=== PATIENT | male | born 1985 | race Caucasian/White ===

== ENCOUNTER 2017-03-28 16:49 | Inpatient (IN) | payer MEDICAID, OTHER ==
--- NOTE | 2017-03-28 17:19 | ED ---
Psych HPI - General Source: patient, police, RN notes reviewed, old records reviewed Mode of arrival: EMS <Clementine Eaton - Last Filed: 03/29/17 04:10> <Kirk Sandoval - Last Filed: 03/29/17 17:17> - General Chief Complaint: Psychiatric Symptoms Stated Complaint: mental health Time Seen by Provider: 03/28/17 16:53 - History of Present Illness Initial Comments: This is a 31-year-old male presenting to the emergency department via police escort and EMS plate of delusional statements and being combative. Patient was petitioned by police. Patient reports that he came to pressure on after taking a ferry from [place] and his hometown, and crossing into [place]. Then he took the [employer] Bus system to [place]. He reports that he was trying to get his passport processed. Per police when the fire department and EMS was dispatched to a person down in a parking lot behind a bank. It initially patient was combative and making delusional statements. 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 Patient is Referencing the bible in each sentance. He states "Confucianism Marcell" and reports that this is his leader. Per the k 9 police officer, EMS dispatch advised that there is a [place] mental ordinance that exists, and that he cannot own guns. Patient reports that he has been hospitalized in the past but does not state exactly what for. He denies any significant medical history. He reports he takes no medication.Patient denies any recent fever, chills, shortness of breath, chest pain, back pain, abdominal pain, nausea vomiting, numbness or tingling, dysuria or hematuria, constipation or diarrhea, headaches or visual changes, or any other current symptoms (Clementine Eaton) - Related Data Home Medications Medication Instructions Recorded Confirmed No Known Home Medications [No 03/28/17 03/28/17 Known Home Medications] Allergies Allergy/AdvReac Type Severity Reaction Status Date / Time No Known Allergies Allergy Verified 03/28/17 16:59 Review of Systems ROS Other: All systems not noted in ROS Statement are negative. <Clementine Eaton - Last Filed: 03/29/17 04:10> ROS Other: All systems not noted in ROS Statement are negative. <Kirk Sandoval - Last Filed: 03/29/17 17:17> ROS Statement: Those systems with pertinent positive or pertinent negative responses have been documented in the HPI. Past Medical History Past Medical History: No Reported History History of Any Multi-Drug Resistant Organisms: None Reported Past Surgical History: Adenoidectomy, Tonsillectomy Past Psychological History: No Psychological Hx Reported Smoking Status: Former smoker Past Alcohol Use History: None Reported Past Drug Use History: None Reported <Clementine Eaton - Last Filed: 03/29/17 04:10> General Exam Limitations: no limitations General appearance: alert, in no apparent distress Head exam: Present: atraumatic, normocephalic, normal inspection Eye exam: Present: normal appearance, PERRL, EOMI. Absent: scleral icterus, conjunctival injection, periorbital swelling ENT exam: Present: normal exam, mucous membranes moist Neck exam: Present: normal inspection. Absent: tenderness, meningismus, lymphadenopathy Respiratory exam: Present: normal lung sounds bilaterally. Absent: respiratory distress, wheezes, rales, rhonchi, stridor Cardiovascular Exam: Present: regular rate, normal rhythm, normal heart sounds. Absent: systolic murmur, diastolic murmur, rubs, gallop, clicks GI/Abdominal exam: Present: soft, normal bowel sounds. Absent: distended, tenderness, guarding, rebound, rigid Extremities exam: Present: normal inspection, full ROM, normal capillary refill. Absent: tenderness, pedal edema, joint swelling, calf tenderness Back exam: Present: normal inspection Neurological exam: Present: alert, oriented X3, CN II-XII intact Psychiatric exam: Present: flat affect, other (Patient has loose associations, and is acting delusional. ). Absent: normal affect, normal mood Skin exam: Present: warm, dry, intact, normal color. Absent: rash <Clementine Eaton - Last Filed: 03/29/17 04:10> <Kirk Sandoval - Last Filed: 03/29/17 17:17> - General Exam Comments Initial Comments: 31-year-old male. No acute distress. Patient is with long hair and appears somewhat disheveled. (Clementine Eaton) Course <Clementine Eaton - Last Filed: 03/29/17 04:10> <Kirk Sandoval - Last Filed: 03/29/17 17:17> Vital Signs 03/28/17 03/29/17 03/29/17 16:53 03:20 10:43 Temperature 98.8 F 98.4 F Pulse Rate 90 66 Respiratory 16 16 18 Rate Blood Pressure 153/80 108/60 O2 Sat by Pulse 93 L 100 Oximetry 03/29/17 13:47 Temperature 98.8 F Pulse Rate 68 Respiratory Rate Blood Pressure 99/52 O2 Sat by Pulse 97 Oximetry - Reevaluation(s) Reevaluation #1: 03/28/17 17:21 Patient is medically cleared at this time and will be evaluated by emergency psych services. (Clementine Eaton) Reevaluation #2: 03/28/17 21:50 Patient is a irrate and upset. Patient will be given 2 IM Geodon and Ativan. At this time is in full word that patient will need to be transferred back to [place]. (Clementine Eaton) Reevaluation #3: 03/29/17 04:10 Patient is reevaluated and sleeping and resting comfortably. Patient To receive 2 mg of Ativan and 20 mg of Geodon IM. Afterwards patient was cooperative. Care will be transferred to Dr. Gloria at 4 AM. (Clementine Eaton) Medical Decision Making - Lab Data Result diagrams: 03/28/17 19:58 03/28/17 19:58 <Clementine Eaton - Last Filed: 03/29/17 04:10> - Lab Data Result diagrams: 03/28/17 19:58 03/28/17 19:58 <Kirk Sandoval - Last Filed: 03/29/17 17:17> - Medical Decision Making Patient was evaluated by EPS. They feel that he needs to be transferred back to [place]. Lab work needs to be obtained. CBC BMP and urinalysis ordered. ( Clementine Eaton) Patient was in a significant transferred to [place] however today it came to our attention that he is also is a [place] citizen. So we reevaluated him in the emergency department psych department decided to admit the patient. I did fill out a clinical certification (Kirk Sandoval) - Lab Data Lab Results 03/28/17 03/28/17 03/28/17 Range/Units 19:58 19:58 19:58 WBC 6.1 (3.8-10.6) k/uL RBC 4.87 (4.30-5.90) m/uL Hgb 16.0 (13.0-17.5) gm/dL Hct 45.0 (39.0-53.0) % MCV 92.4 (80.0-100.0) fL MCH 32.9 (25.0-35.0) pg MCHC 35.6 (31.0-37.0) g/dL RDW 12.3 (11.5-15.5) % Plt Count 214 (150-450) k/uL Neutrophils % 57 % Lymphocytes % 28 % Monocytes % 10 % Eosinophils % 1 % Basophils % 1 % Neutrophils # 3.5 (1.3-7.7) k/uL Lymphocytes # 1.7 (1.0-4.8) k/uL Monocytes # 0.6 (0-1.0) k/uL Eosinophils # 0.1 (0-0.7) k/uL Basophils # 0.0 (0-0.2) k/uL Sodium 143 (137-145) mmol/L Potassium 4.6 (3.5-5.1) mmol/L Chloride 101 (98-107) mmol/L Carbon Dioxide 29 (22-30) mmol/L Anion Gap 13 mmol/L BUN 10 (9-20) mg/dL Creatinine 0.70 (0.66-1.25) mg/dL Est GFR (MDRD) Af Amer >60 (>60 ml/min/1.73 sqM) Est GFR (MDRD) Non-Af >60 (>60 ml/min/1.73 sqM) Glucose 88 (74-99) mg/dL Calcium 9.7 (8.4-10.2) mg/dL Total Bilirubin 0.5 (0.2-1.3) mg/dL AST 35 (17-59) U/L ALT 62 (21-72) U/L Alkaline Phosphatase 51 (38-126) U/L Total Protein 7.3 (6.3-8.2) g/dL Albumin 4.7 (3.5-5.0) g/dL Urine Color Yellow Urine Appearance Clear (Clear) Urine pH 8.0 (5.0-8.0) Ur Specific [place] 1.016 (1.001-1.035) Urine Protein Trace H (Negative) Urine Glucose (UA) Negative (Negative) Urine Ketones Negative (Negative) Urine Blood Negative (Negative) Urine Nitrite Negative (Negative) Urine Bilirubin Negative (Negative) Urine Urobilinogen 2.0 (<2.0) mg/dL Ur Leukocyte Esterase Negative (Negative) Urine Opiates Screen Not Detected (NotDetected) Ur Oxycodone Screen Not Detected (NotDetected) Urine Methadone Screen Not Detected (NotDetected) Ur Propoxyphene Screen Not Detected (NotDetected) Ur Barbiturates Screen Not Detected (NotDetected) U Tricyclic Antidepress Not Detected (NotDetected) Ur Phencyclidine Scrn Not Detected (NotDetected) Ur Amphetamines Screen Not Detected (NotDetected) U Methamphetamines Scrn Not Detected (NotDetected) U Benzodiazepines Scrn Not Detected (NotDetected) Urine Cocaine Screen Not Detected (NotDetected) U Marijuana (THC) Screen Detected H (NotDetected) Disposition <Clementine Eaton - Last Filed: 03/29/17 04:10> Time of Disposition: 17:17 <Kirk Sandoval - Last Filed: 03/29/17 17:17> Clinical Impression: Acute psychosis Disposition: ADMITTED IP TO THIS [facility] Referrals: None,Stated [Primary Care Provider] - 1-2 days
[2017-03-28 20:15] LABS: Basophils % (A) 1 %; CH 32.6; CHCM 35.4; Eosinophils # (A) 0.1 k/uL (0-0.7); Eosinophils % (A) 1 %; HDW 2.56; Luc # (Auto) 0.22; Luc % (Auto) 4; Lymphocytes # (A) 1.7 k/uL (1.0-4.8); Lymphocytes % (A) 28 %; MCH 32.9 pg (25.0-35.0); MCHC 35.6 g/dL (31.0-37.0); MCV 92.4 fL (80.0-100.0); Mean Platelet Volume 7.2; Monocytes # (A) 0.6 k/uL (0-1.0); Monocytes % (A) 10 %; Neutrophils # (A) 3.5 k/uL (1.3-7.7); Neutrophils % (A) 57 %; RBC 4.87 m/uL (4.30-5.90); RDW 12.3 % (11.5-15.5); WBC 6.1 k/uL (3.8-10.6); WBC (Perox) 6.04
[2017-03-28 20:21] LABS: Appearance,Urine Clear (Clear); Bilirubin,Urine Negative (Negative); Glucose,Urine (UA) Negative (Negative); Ketones,Urine Negative (Negative); Leukocyte Esterase,Urine Negative (Negative); Nitrite,Urine Negative (Negative); Protein,Urine Trace (Negative); Specific Gravity,Urine 1.016 (1.001-1.035); UA Billing (MACRO vs. MICRO) CHEM
[2017-03-28 20:30] LABS: ALT 62 U/L (21-72); AST 35 U/L (17-59); Alkaline Phosphatase 51 U/L (38-126); Anion Gap 13 mmol/L; Blood Urea Nitrogen 10 mg/dL (9-20); Calcium 9.7 mg/dL (8.4-10.2); Carbon Dioxide 29 mmol/L (22-30); Chloride 101 mmol/L (98-107); Glucose 88 mg/dL (74-99); Non-African American GFR(MDRD) >60 (>60 ml/min/1.73 sqM); Potassium 4.6 mmol/L (3.5-5.1); Sodium 143 mmol/L (137-145); Total Bilirubin 0.5 mg/dL (0.2-1.3); Total Protein 7.3 g/dL (6.3-8.2)
[2017-03-28] MEDS ORDERED: LORazepam 2 MG/ML INJ IM STA (21:48)
[2017-03-28] MEDS ORDERED: ZIPRASIDONE 20 MG VIAL IM STA (21:48)
[2017-03-29] MEDS ORDERED: ACETAMINOPHEN TAB 325 MG TAB PO PRN (19:00)
[2017-03-29] MEDS ORDERED: MAG HYDROX/AL HYDROX/SIMETH 30 ML CUP PO PRN (19:00)
[2017-03-29] MEDS ORDERED: MAGNESIUM HYDROXIDE 2,400 MG/10 ML CUP PO PRN (19:00)
--- NOTE | 2017-03-29 19:57 | P.MDCNMH ---
History of Present Illness H&P Date: 03/29/17 Chief Complaint: Delusions 31 years old pleasant gentleman without significant past medical history, who was brought by police yesterday to the ED after being found in the street delusional and combative. The story I got from the patient today is slightly different from what was reported by the ED. He mentioned that he came from [place] to obtain his [place] PassPort, came by [facility], and have been in the [place] for 3 weeks. He was sleeping outside a bank overnight as he sits, and EMS and police found him, and he reported that they thought that he is not normal when he started talking that the people in this area will be having problems as they are not on the right path. He claimed that he knows and research lot about people were chosen by god, and he tries to show people the right path. He said he is Ann in taoism. Medically, he denied any other medical problems, review of systems was negative as below, he does not drink, but he admits to smoking marijuana occasionally. His vital signs and labs were unremarkable otherwise. He does not take any medications. Review of Systems Constitutional: Patient reports no fever, no chills, no weight changes, no change in appetite Eyes: Patient reports no double vision, no visual changes ENT: Patient reports no rhinorrhea, no post nasal drip, no sore throat Cardiovascular: Patient reports no chest, no edema, no palpitations, no syncope , no orthopnea, no paroxysmal nocturnal dyspnea. Respiratory: Patient reports no dyspnea, no cough, no wheeze Gastrointestinal: Patient reports no nausea, no vomiting, no constipation, no diarrhea Genitourinary: Patient reports no dysuria, no urinary frequency, no hematuria. Musculoskeletal: Patient reports no unusual joint pain, no joint swelling or weakness. Patient reports no muscular pain. Psychiatric: Patient reports no changes in mood, no sleeping problems. Patient reports no changes in memory. Endocrine: Patient reports no thirst, no polyuria, no cold intolerance, no heat intolerance. Neurological: Patient reports no unusual paresthesias, no seizures, no paresis , no paralysis, no facila droop, no headache. Heme/Lymphatic: Patient reports no easy bruising, no bleeding tendency, no lymphadenopathy. Allergic/ Immunologic: Patient reports no recent allergic reactions or immunologic history. Skin: Patient reports no rashes or unusual lesions. Past Medical History Past Medical History: No Reported History Additional Past Medical History / Comment(s): No past medical history. History of Any Multi-Drug Resistant Organisms: None Reported Past Surgical History: Adenoidectomy, Tonsillectomy Past Anesthesia/Blood Transfusion Reactions: No Reported Reaction Past Psychological History: No Psychological Hx Reported Smoking Status: Former smoker Past Alcohol Use History: None Reported Past Drug Use History: None Reported Medications and Allergies Home Medications Medication Instructions Recorded Confirmed Type No Known Home Medications [No 03/28/17 03/28/17 History Known Home Medications] Allergies Allergy/AdvReac Type Severity Reaction Status Date / Time No Known Allergies Allergy Verified 03/28/17 16:59 Physical Exam Vitals: Vital Signs Temp Pulse Pulse Resp BP BP Pulse Ox 03/29/17 17:48 97.0 F L 67 18 127/58 03/29/17 17:26 98.8 F 68 18 99/52 97 03/29/17 13:47 98.8 F 68 99/52 97 03/29/17 10:43 98.4 F 66 18 108/60 100 03/29/17 03:20 16 Intake and Output 03/29/17 03/29/17 03/29/17 06:59 14:59 22:59 Other: Weight 66.23 kg Patient Weight 03/30/17 06:59 Weight 66.23 kg Constitutional: No acute distress, conversant, pleasant Eyes: Anicteric sclerae, moist conjunctiva, no lid-lag PERRLA ENMT: NC/AT Oropharynx clear, no erythema, exudates Neck: Supple, FROM, no masses, or JVD No carotid bruits No thyromegaly Lungs: Clear to auscultation Clear to percussion Normal respiratory effort, no accessory muscle use Cardiovascular: Heart regular in rate and rhythm, No murmurs, gallops, or rubs No peripheral edema Abdominal: Soft Nontender, no guarding, rebound or rigidity Abdomen moving with respiration Normoactive bowel sounds No hepatomegaly, No splenomegaly No palpable mass No abdominal wall hernia noted Skin: Normal temperature, tone, texture, turgor No ulcers Extremities: No digital cyanosis No clubbing Pedal pulses intact and symmetrical Radial pulses intact and symmetrical Normal gait and station No calf tenderness Psychiatric: Alert and oriented to person, place and time Neuro: Muscles Strength 5/5 in all 4 extremities Sensation to light touch grossly present throughout Cranial nerves II-XII grossly intact No focal sensory deficits Cranial Nerve Examination - Cranial Nerves Cranial Nerve II- Optic: Intact Cranial Nerve III- Oculomotor: Intact Cranial Nerve IV- Trochlear: Intact Cranial Nerve V- Trigeminal: Intact Cranial Nerve - Abducens: Intact Cranial Nerve VII- Facial: Intact Cranial Nerve VIII- Auditory: Intact Cranial Nerve IX- Glossopharyngeal: Intact Cranial Nerve X- Vagus: Intact Cranial Nerve XI- Accessory: Intact Cranial Nerve XII- Hypoglossal: Intact Results CBC & Chem 7: 03/28/17 19:58 03/28/17 19:58 Labs: Abnormal Lab Results - Last 24 Hours (Table) 03/28/17 Range/Units 19:58 Urine Protein Trace H (Negative) U Marijuana (THC) Screen Detected H (NotDetected) Comments: No imaging studies Assessment and Plan (1) Acute psychosis Status: Acute Plan: 31 years old gentleman who is healthy otherwise, was brought by police for being delusional and combative. Patient is not combative and is pleasant upon my interview. He does not have medical problems other than his current acute psychosis. His blood pressure is slightly soft, he is small built and thin. Impression: -Acute psychosis He admits that he is teaching the lessons taken from the people were chosen by god Management per the psychiatric unit. No current opioids needs. -Marijuana abuse Marijuana was detected on UDS, however he admitted that the last smoke was 1 week ago We recommend social consult for chemical dependency and to offer resources for help -Soft blood pressure Likely related to poor nutrition We are recommend nutritional evaluation -Homeless status in the [place] Patient is from [place], but does have a [place] passport that was obtained recently as he reported We recommend case work aide consult Thank you for this consult, please do not hesitate to call us back for any questions. Time with Patient: Greater than 30
--- NOTE | 2017-03-30 10:29 | HP ---
PSYCHIATRIC ADMISSION NOTE: DATE OF : 1985 IDENTIFYING DATA: The patient is a 31-year-old male. He apparently is homeless. He was found by EMS and police on the street and brought to the emergency room for evaluation and then referred for psychiatric admission. The patient provided the bulk of information although what information he provided was very limited. CHIEF COMPLAINT: The patient had odd behavior. He was making delusional statements. He was talking in an odd, nonsensical manner with made up words. He made references to cannibals, Alvaro, terrorists and others. Patient was admitted on petition for involuntary hospitalization. HISTORY PRESENTING ILLNESS: The patient reports that he has not had a previous psychiatric hospitalization. He reports that he has not had prior mental health intervention nor has been on any psychotropic medications in the past or presently. He stated that about six weeks ago he moved from [place] He gave us his explanation for this, that he was living in [facility], he believe that "there was a terrorist uprising" with immigrants causing "rape and pillage." He believe that there was "demonology connected with the [place] " though he was not able to give a clear explanation of what he meant by that. He said that he spent one night in a assisted when he got [place] and since then he apparently has been living outdoors. He then went on to make statements about believing he heard people make statements that they ate children and that they raped children. When I asked for more details he said that people did not say that directly but that he had a "aura" that would come from some people with those statements. He believed that the police had told him that there were body parts of children in the [facility] and that there was cannibalism throughout the city of [place], directly mainly at children. Beyond these kind of statements he provided no other concrete information in regards to any psychiatric issues. He reported no issues with auditory or visual hallucinations or other delusions. He denied any posttraumatic symptoms or past history of trauma. He did not indicate any issues with anxiety or panic. There are references in the medical record for the patient becoming combative with police though there are no details reported. The patient himself denies having any significant psychiatric issues. He also states that the information he is providing is truth and actual and that he could not conceive that the information may not be in touch with reality. He is admitted for further evaluation. SUBSTANCE ABUSE HISTORY: Patient reports that he had been smoking marijuana daily up until he left [place]. He reports not use of marijuana since then. He reports not use of alcohol or other abusive substances past or present. PAST MEDICAL HISTORY: Patient reports no chronic or recurrent general health complaints. Further medical history and review of systems as per Dr. Lujan' s medical consultation. FAMILY AND SOCIAL HISTORY: The patient states that he dropped out of school in the 11th grade. He made some indication of some work that he had been doing though it is difficult to be clear what he was referencing. He did not provide other information in regards to past social history. MENTAL STATUS EXAM: Patient was dressed in a hospital gown. He gave good eye contact. He was restless. He answered questions with fairly elaborate responses. He would ramble and talk extensively about the ideas noted above. At times it was difficult to follow his train of thought or what things he might be referencing. He had an anxious and, at times, somewhat intense affect. His mood was dysphoric. He seemed somewhat distressed though he minimized any problems he was having. His thought content was significant for persistent delusional thinking. On cognitive exam he was oriented x3 and alert. He did not make an effort to answer formal cognitive questions. He appeared to have reasonable memory for recent and remote events. Insight was poor. Judgment uncertain. Fund of knowledge and intellectual level appeared average. PHYSICAL EXAM: As per medical consultation of Dr. Lujan. ASSESSMENT: This 31-year-old male is diagnosed with acute psychotic episode, rule out schizophrenia ( ) to his situation uncertain. He does not appear to have much if any social support. It is unclear over what period of time he has been having delusional thoughts or what the extent of the progression may be. Strengths include nondalton intelligence. Weakness includes poor insight regarding his current situation. DIAGNOSES: 1. Acute psychotic episode. 2. Rule out schizophrenia. 3. Marijuana abuse in early withdrawal. RECOMMENDATIONS: The patient will be admitted for comprehensive medical psychiatric and psychosocial evaluation. We will make efforts to engage the patient in individual and group therapeutic activities. I will complete a second certification in support of the petition for involuntary hospitalization. I had an extensive discussion with the patient in regards to the nature of the petition and hospitalization process. The patient seems to indicate that he would consider signing a deferral. At this point I would not recommend any medications to be initiated. I will give the patient an effort an get adjusted to the unit and to have some interactions with others, both in formal process such as our groups as well as informally. This will help to further the evaluation. I would look at possibly initiating antipsychotic medications. LAURIE
--- NOTE | 2017-03-30 15:18 | PN ---
DATE OF SERVICE: 03/30/2017 CHIEF COMPLAINT: The patient was admitted due to odd behavior. He was making delusional statements. He was talking in an odd nonsensical manner with made- up words. He made references to cannibals, Alvaro, terrorists and others. Patient was admitted on petition for involuntary hospitalization. INTERVAL HISTORY: Patient has been doing fair. He had a quite evening last night. He slept fair. Today, he has been up and about. He does come out in the day area. He has been attending groups though has seen to be reluctant to share much. He may come to the groups late and leave early. Generally his behavior has been appropriate. He tends to undulate himself. In regards to meals, he takes his meals in the [place]. He made the comment yesterday that there was someone in the dining room that was bothering him, though he did not say how. He continues to be quite delusional and focused on ideas about people doing harm. Some information had been transmitted to the Psychiatric nurse from police who were involved in bringing him to the hospital, that he may be under a court order treatment in [place]. Patient himself denies this. The patient reports that he has [place] citizenship; however, there is documentation we have regarding that. He says that he has a [place] certificate and that he is anticipating a passport to be delivered to his P.O. box that he has in [place] and we do not have any verifying information regarding that. Patient resists the idea of being on any medications. He has poor insight into the issues of a thought disorder that he manifests. He continues to talk about things happening eons ago as well as making references to terrorists, rapists and others. He has not displayed any difficult behaviors. At times, he can have quite the odd behavior with a very intense manner that is off-putting to others. He has been cooperative with basic issues on the unit. He has not had change in his general health. He tolerates his psychotropic medications. MENTAL STATUS: Patient sat with restlessness. He tended to ramble. He answered a few questions appropriately but most of the time he veered off into talk about the bible, terrorists and other bad things happening. He continued to make references to immigrants who are creating a terrorists uprising. His affect was intense. His mood reserved. He seemed moderately distressed. ASSESSMENT AND PLAN: Continue with the current diagnosis and plan. The patient is currently not on any psychotropic medications. I discussed the issues of his delusional thoughts and recommended that we start an antipsychotic medication. The patient declined that at this time. I did review issues relating to the petition. Patient has a deferral hearing tomorrow at 8: 15 a.m. We will make efforts to coordinate with [place] [employer] as far as the possibility of court order treatment in [place]. LAURIE
[2017-04-01] MEDS ORDERED: LORazepam 1 MG TAB PO STA (00:14)
--- NOTE | 2017-04-01 09:37 | PN ---
DATE OF SERVICE: 03/31/2017 CHIEF COMPLAINT: The patient was admitted due to odd behavior. He was making delusional statements. He was talking in an odd nonsensical manner with words, he made references to cannibals, Alvaro, terrorists and others. The patient was admitted on petition for involuntary hospitalization. INTERVAL HISTORY: The patient continues doing about the same. He had quiet evening last night. He slept fair. Today he has been up and about. He wanders about the unit. He will attend some groups. He is quite adamant about the idea of not taking medications. It is noteworthy that he only has presented with a [place] passport and other [place] identification including a medical card. The patient himself states that he was born in the [place] and anticipates receiving his [place] passport. We have no way of verifying this information. The patient had a deferral meeting this morning and has elected to have a cirilo hearing with a jury in regards to his petition. It is noted that we have made contact with the court and the court had indicated that the only appropriate disposition at this point is to have the patient transported back to [place] to be treated in his home [place]. We have no other information or documentation that would allow the patient to receive services in the [place]. I discussed this with the patient. Though he was quite adamant about the idea that he would seek alternative options to be referred back to a [place] medical facility. He has not had change in his general health. MENTAL STATUS: Initially the patient was quiet in his manner. He continued to be focused in his thoughts on the need to be out of [place] due to terrorist plots with many references to hostile activities and hostile intent of others including references going back over centuries. His affect was intense. After I presented the patient with the plan that we would coordinate for referral to a medical facility in [place], he became very angry. He made a number of derogatory comments with profanity. He was angry and distress. ASSESSMENT: I will continue the current diagnosis and treatment plan. We have made contact with a medical facility in [facility]. They currently are evaluation medical records as part of a assessment for admission. He will continue off medications at this time. The patient would be transported by EMS to [place] for further medical care. LAURIE
--- NOTE | 2017-04-01 19:48 | PN ---
DATE OF SERVICE: 04/01/2017 CHIEF COMPLAINT: The patient was admitted due to odd behavior. He was making delusional statements. He was talking in an odd nonsensical manner with made up words. He mad references to cannibals, Alvaro, terrorists and others. Patient was admitted on petition for involuntary hospitalization. INTERVAL HISTORY: The patient has been doing fair. He had a quiet evening last evening though in the night he got quite loud and intense. He was restless and became confrontational with staff. Today he has been up and about. He does not clearly socialize with others though he comes out in the day area. He tends to keep to himself. It is noteworthy that he takes his meals in the [place], stating in a vague way that there is something of a threat to him in the dining room so he chooses not to be around others. He attends some groups though not others. The following descriptors have been noted in group including, "bizarre, inappropriate, irritable, loud, intrusive, illogical , presybeterian preoccupation and restless." During one group it was noted that the patient sat facing the wall even while talking throughout the group. He made the comments about "why people shouldn't take medications." In another group it was documented as follows, "patient testing limits with film writer and peers. Patient demanding that select peers repeat information back to patient. Patient was loud and commanding." When I talked to the patient today he made no indication of concerns. He stated that he understood the current situation which namely was that the would go "to trial." I made an effort to explain to the patient that the next step in the process was that he has a hearing before Pasteurizing Machine Operator Elizabeth scheduled for the . While I made an effort to explain this to the patient, which I said directly, the patient began saying quite loudly, " I don't want to hear from you." He said that repeatedly during the time that I provided him the information about the court hearing. I also stated to the patient that my understanding was that he would not be transferred back to [place] and that it had been confirmed that he has [place] citizenship based on his place of noted in his [place] passport. Again, throughout all of that discussion the patient was very loud and kept repeating that he did not want to talk or hear from me. He has not had any complaints regarding general health. At times he gets intense though he has not had any clear disruptive or difficult behavior beyond being loud and restless. MENTAL STATUS: Patient gave poor eye contact. He was restless. He did not make any effort to answer questions. He had an angry affect as noted above. His mood was dysphoric. He was significantly distressed. ASSESSMENT: I will continue the current diagnosis of acute psychotic episode. It is likely that he has an underlying diagnosis of schizophrenia though we do not have longitudinal information to be able to confirm that diagnosis. I had discussed with staff that there needs to be caution in monitoring and assessing his behavior and function. He has paranoid delusions and indicates that on the unit he feels threatened in some way. While he has not demonstrated any behavior that would be a potential risk for harm and safety, either to the patient himself or others, we have to be prepared that there may be unpredictable behaviors that could be potentially dangerous given the paranoia and sense of threat that the patient has. We will continue with the process for petition. LAURIE
--- NOTE | 2017-04-02 15:55 | PN ---
DATE OF SERVICE: 04/02/2017 CHIEF COMPLAINT: The patient was admitted due to odd behavior. He was making delusional statements. He was talking in an odd, nonsensical manner with made- up words. He made references to cannibals, Alvaro, terrorists and others. The patient was admitted on petition for involuntary hospitalization. INTERVAL HISTORY: The patient has been doing fair. He continues to decline all treatment intervention. He declines taking any medications. He continues to make statements that he does not identify any mental health issues he has; on the other hand, he continues to make delusional statements. He made a comment about computer chips being implanted in him. He continues to focus on feeling that others around him are out to do him harm. Yesterday he made some inappropriate and threatening comments towards another patient in reference to sexual orientation. He continues to make references to bad things happening in the hospital, in the community, in the country and beyond. He is not able to show any insight in regards to his thought content. Patient has had episodes where he gets angry and yells at staff. Some staff feel that he seems to direct more anger at female staff. He will yell in an angry tone, being dismissive of staff. Sometimes he will resist following redirection, such as when he was at the nursing desk and was asked to move to other areas of the unit, he became quite belligerent about that. He has not had change in his general health. He does not identify any immediate needs or concerns that we could address, though I made an effort to make it clear that both staff and I are available if he identified needs to address. MENTAL STATUS: Patient was in the day area. He gave fair eye contact at best. Psychomotor activity was slowed. Speech was monotone. He was not spontaneous or interactive. He responded to a few questions with vague answers. His affect was angry, his mood dysphoric. He seemed somewhat distressed. ASSESSMENT: I will continue the current diagnosis and treatment plan. I had an extensive discussion with staff in regard to monitoring for behavioral issues. He has made some suggestion of feeling threatened by others on the unit. He has had periods where he gets loud and angry. Staff need to have concern that his behavior is unpredictable and that we may need to have early intervention, should his behavior deteriorate. We continue with the petition process. LAURIE
[2017-04-03] MEDS ORDERED: WATER FOR INJECTION, STERILE 10 ML IV ONE (12:15)
[2017-04-03] MEDS ORDERED: ZIPRASIDONE 20 MG VIAL IM ONE (12:15)
--- NOTE | 2017-04-03 14:17 | P.PN ---
Progress Note - Text Interval history: Patient seen in cross coverage today for Dr. Thibodeaux. He seems to relay that he is sleeping and eating well. He relates that he is not taking any medication and is not interested in any medication at this time. He seems to relay that he is doing better than most people here who are dealing with mental health issues. Mental status exam: He is alert and cooperative with the interview. He asks me several times during the session a no what a certain word means. He refers to himself as a "nigger" and an "Israelite." he does not verbalize any hallucinations or thoughts of harm to self or others. He does not show any significant agitation. Plan: We'll continue to monitor patient status. He has upcoming court hearing on the . We'll continue to cover for Dr. Thibodeaux through the weekend.
--- NOTE | 2017-04-04 18:19 | P.PN ---
Progress Note - Text Interval history: Patient is seen in cross coverage today for Dr. Thibodeaux. He reports that he slept well last night and is eating well. He reports that he had for lunch. He makes reference to feeling optimistic. Mental status exam: He is alert and cooperative with the interview. His speech is fluent, not rapid or pressured. His thought processes do show some disorganization at times and towards the end of the session he is very focused on methodist matters. He denies any thoughts of harm to self or others. He describes his mood as "optimistic." He does not show any significant agitation. Plan: Patient does talk about upcoming court hearing. Dr. Thibodeaux will be resuming his care tomorrow. Continue to monitor his status
--- NOTE | 2017-04-05 08:18 | P.PN ---
Subjective Principal diagnosis: Rash Patient 31-year-old male with no significant past medical history who is admitted to the psychiatric unit for delusional thinking. We are asked evaluate him today for possible rash on his back. The nurse noted that this morning. He states that the rash does not hurt but it does feel itchy. He is concerned that he could've been exposed to an insect. He is unsure if he has had a bug bite are not in that area. He believes it may be due to an ALLERGIC reaction to his down or bedding. He denies any chest pain, shortness of breath, nausea, vomiting, or constipation. Objective - Vital Signs Vital signs: Vital Signs Temp 97.7 F 04/03/17 07:44 Pulse 52 L 04/03/17 07:44 Resp 16 04/03/17 07:44 BP 96/63 04/03/17 07:44 Pulse Ox 97 03/29/17 17:26 - Exam General: non toxic, no distress, appears at stated age, disheveled Derm: Approximately 2 cm area of redness and warmth to the right of his spine, it is slightly raised but I do not feel fluctuant area that could be drained, no lesions Head: atraumatic, normocephalic, symmetric Eyes: EOMI, no lid lag, anicteric sclera Mouth: no lip lesion Cardiovascular: S1S2 reg, no murmur, positive posterior tibial pulse bilateral, Lungs: CTA bilateral, no rhonchi, no rales , no accessory muscle use Ext: no gross muscle atrophy, no edema, no contractures Neuro: CN II-XI grossly intact, no focal neuro deficits Psych: Alert, oriented, anxious - Labs CBC & Chem 7: 03/28/17 19:58 03/28/17 19:58 Assessment and Plan (1) Cellulitis Narrative/Plan: Trunk, will start Bactrim DS 1 tablet twice daily, will recheck in the next 2-3 days to ensure that abscess is not forming. Have ordered 5 days of treatment with small area of cellulitis and no risk factors. Status: Acute Plan: Thank you for allowing us to participate in the care of this patient. We will follow peripherally. Do not hesitate to contact us with questions. Someone can be reached from the [facility] hospitalist group at all hours of the day at [phone]. We will plan on seeing the patient again in 2-3 days to check quality of rash. If he is discharged prior to the please call us for Bactrim prescription to complete his course of therapy
[2017-04-05] MEDS ORDERED: HALOPERIDOL LACTATE 5 MG/ML 1 ML VIAL IM PRN ×2 (10:03)
[2017-04-05] MEDS ORDERED: LORazepam 2 MG/ML INJ IM PRN (10:04)
[2017-04-05] MEDS: SULFAMETHOX-TMP 800-160MG 1 EACH TAB PO SCH ×2 (10:22→22:28)
[2017-04-06] MEDS: SULFAMETHOX-TMP 800-160MG 1 EACH TAB PO SCH ×2 (10:29→21:47)
--- NOTE | 2017-04-06 13:04 | PN ---
DATE OF SERVICE: 04/05/2017 CHIEF COMPLAINT: The patient was admitted due to odd behavior. He was making delusional statements. He was talking in an odd nonsensical manner with made up words. He made references to cannibals, Alvaro, terrorists and others. The patient was admitted on petition for involuntary hospitalization. INTERVAL HISTORY: The patient had a quiet weekend according to the notes of Dr. Waite. He reports sleeping fairly well last night. Today he has been up and about. Additionally when I saw him earlier in the day, he was somewhat distressed about the fact that the nurse had asked not to intervene in a way where he intruded on another patient. Another patient was being loud and seemed distressed. The patient said that he felt the other human being was in distress and I needed to help him. He was directed under such circumstances to now intrude in the care of other patients but in that situation to come immediately to staff at the nursing desk and report and then to move to another area of the unit. It is also noted that at times he may stand and stare into the offices where nursing and other staff are. He was directed to not have that behavior though he was certainly free to move about the unit. It was clarified that kind of behavior can be intrusive as well as interpreted as threatening. I met with the patient later on in the day. He asked some questions about his court hearing for tomorrow. We discussed some of the issues with this. He asked what my assessment was. I did share that had diagnosed him with paranoia and delusions. I reviewed things that the patient had said to come to that conclusion. I noted that the patient had struggles with his mood and that we have seen him a number of times on the unit getting very angry. He says the only time he gets angry is when people interrupt him when he is trying to talk. He said that those situations occur when he is trying to tell people about his confucianist and explain his background. I discussed with the patient that the work that we would do on the psychiatric unit is not involved in his confucianism or philosophical beliefs but strictly focused on psychiatric issues. It is noted that after the discussion went on, he made a number of references to things such as people being micro chipped. He stated that when he goes to court, he wants a jury trial with people that are not microchipped. He then went on to say that he is well aware that people in [place] have been microchipped going back to the 1950s. I discussed with the patient that when he makes comments like that, that it would add to information suggestive of delusions and paranoia. I discussed his behavior of not going into the dining room and eating with others. He started talking about his confucianism believes and how he was supposed to eat with my own people. I discussed that there are plenty of tables in the dining room and if he prefers, he can sit by himself. However, isolated himself in those circumstances again is another piece of information that is suggestive of thought disorder. I reviewed the behaviors that he has had as well including the two noted above. I also reviewed the statements that he had made earlier in his admission about terrorist, rape, people eating children and body parts found in the [place] as further suggestion of thought disorder. The patient denied any problems with general health. He continues off psychotropic medications. I did offer him some Zyprexa. I reviewed some of the basic issues related to Zyprexa as well as indications and side effects. At one point, it seemed as if the patient was contemplating a willingness to start the medication. I discussed one of his motivations is to get out of the hospital fairly soon and that starting medication and considering signing a deferral would be appropriate options to help in this regard. As the discussion went on, he then changed to making references that were not in touch with reality. He clearly indicated that he did not want to take medication. I also reviewed the process of a 90 day treatment order should that be put into effect. MENTAL STATUS: The patient had a staring gaze. He had a stiff posture. He answered some questions with brief responses. He tended to give tangential answers and make many references to the Bible and other beliefs that he had. He had anxious affect. His mood was reserved. He seemed somewhat distressed. ASSESSMENT: I will continue the current diagnosis and treatment plan. The patient has an initial court hearing tomorrow and we will get further information in regards to issues relating to the petition and possible court order treatment should that come to pass. LAURIE
[2017-04-07] MEDS: SULFAMETHOX-TMP 800-160MG 1 EACH TAB PO SCH (10:01)
--- NOTE | 2017-04-07 12:03 | PN ---
DATE OF SERVICE: 04/06/2017 CHIEF COMPLAINT: The patient was admitted due to odd behavior. He was making delusional statements. He was talking in an odd, nonsensical manner with made up words. He had aggressive behavior. He made references to cannibals, Alvaro, terrorists and others. He was admitted on petition for involuntary hospitalization. INTERVAL HISTORY: The patient has continued the same. He continues to present with quite a paranoid manner. He is only minimally cooperative with staff. He had an incident in the social work office where he got quite angry and loud. He would not respond to redirection. He got quite angry and started talking in a very loud voice about being a criminal and also that there were criminals around him. In addition, he made statements that he needed to go to [facility] to feel safe. At one point yesterday he was pounding on the desk and demanding things although it is difficult to be clear what he was referring to. He had previously told a staff member that he had four warrants in [place] though since then he denies any issue with that. It is also noted that the [facility] Transportation Agent who originally had brought him to the emergency room had called officials in [place] and had found out that he did have a court ordered treatment process in [place]. Again, he tends to give different stories to different people though he told the social service assistant on admission that the way [place] got [place] in the back of a truck though he told me that he presented his passport to officials. He continues to be adamant about the idea that he will not take medications. MENTAL STATUS: The patient had an angry manner. He essentially declined to talk or make any indications about any concerns he might have. His affect was intense and angry. His mood dysphoric. He was significantly distressed. He had paranoid ideation. ASSESSMENT: I will continue the current diagnosis and treatment plan. The patient continues all psychotropic medications. He is requesting a jury hearing in regards to his petition so his court date has been adjusted to accommodate that. I have discussed with staff that if he shows provocative behavior that we need to be prepared to utilize p.r.n. medications. An issue that we may be dealing with is the fact that his paranoid thinking may be somewhat contained while he is on the psychiatric unit which also may help him hold back a potential acting out behavior. On the other hand, he has consistently shown some degree of threatening behaviors and clear paranoia, particularly towards any authorities including mental health staff . It is well understood that being in a contained situation such as the locked psychiatric unit, that may help contain potential acting out behavior. He would be at significant risk if he were out in the community. In fact, he has expressed a lot of fears when he was in the community, making the statement that he believe people around him were threatening and then people in the community were threatening and then people in the state were threatening and then people in the entire country were threatening. He has shown a few brief periods where he can be rational, appropriate and willing to consider reasonably treatment options though it is very clear he will pull back from that and then get into more clear paranoid thinking. We need to be vigilant in terms of safety issues for the patient and others. LAURIE
--- NOTE | 2017-04-07 16:41 | P.PN ---
Subjective Principal diagnosis: Rash Patient 31-year-old male with no significant past medical history who is admitted to the psychiatric unit for delusional thinking. We are asked evaluate him today for possible rash on his back. Patient states the rash is resolved. He denies itching and pain. He has no other lipids at this time. Denies nausea and vomiting. Objective - Vital Signs Vital signs: Vital Signs Temp 97.8 F 04/07/17 00:15 Pulse 62 04/07/17 00:15 Resp 18 04/07/17 00:15 BP 134/75 04/07/17 00:15 Pulse Ox 97 03/29/17 17:26 - Exam General: non toxic, no distress, appears at stated age, disheveled Derm: Area of redness resolved, no lesions Head: atraumatic, normocephalic, symmetric Eyes: EOMI, no lid lag, anicteric sclera Mouth: no lip lesion Cardiovascular: S1S2 reg, no murmur, positive posterior tibial pulse bilateral, Lungs: CTA bilateral, no rhonchi, no rales , no accessory muscle use Ext: no gross muscle atrophy, no edema, no contractures Neuro: CN II-XI grossly intact, no focal neuro deficits Psych: Alert, oriented, anxious - Labs CBC & Chem 7: 03/28/17 19:58 03/28/17 19:58 Assessment and Plan (1) Cellulitis Narrative/Plan: resolved, stop bactrim, suspect that this may be related to bug bite. Status: Acute Plan: Thank you for allowing us to participate in the care of this patient. We will follow peripherally. Do not hesitate to contact us with questions. Someone can be reached from the [facility] hospitalist group at all hours of the day at [phone].
[2017-04-07] MEDS: HALOPERIDOL LACTATE 5 MG/ML 1 ML VIAL IM PRN (20:30)
[2017-04-07] MEDS: LORazepam 2 MG/ML INJ IM PRN (20:31)
--- NOTE | 2017-04-08 11:52 | PN ---
DATE OF SERVICE: 04/07/2017 CHIEF COMPLAINT: The patient was admitted due to odd behavior. He was making delusional statements. He was talking in an odd nonsensical manner with made up words. He had aggressive behavior. He made references to cannibals, Alvaro, terrorists and others. He was admitted on petition for involuntary hospitalization. INTERVAL HISTORY: The patient continues to function as he has. He has episodes where he gets angry and intense. At other times, he will be more withdrawn. He had some incidents yesterday and last night where he got agitated in different places. One was in the office of the director of social media marketing where he got quite loud. He was yelling. He was refusing to respond in any way to calm himself. He needed to be escorted out of the office. He had some episodes last night of agitation where he got very loud and disrespectful to others. He sleeps fair. Today he has continued the same. He continues to decline taking any medications. I had had an extensive discussion with the patient describing the court order process and the potential for 90 day treatment program. From the patients perspective , he continues to anticipate a 90 day treatment being something where he would be monitored, followed and have much of his life restricted. This is in spite of the fact that I have explained the basis of the treatment process as a safety net. Most every day that I have done rounds with him, I explained that treatment process where he is the principal person of the treatment team to help determine what will be the best options. Continue to indicate to the patient that I have assessed him as having paranoid delusions and have explained criteria for this. Today it was noteworthy that the patient seemed to show a little more interest in the possibility of treatment. It is not clear whether he gained any insight about the potential benefit of medications or rather that some willingness to cooperative with treatment would support his discharge from the unit much sooner than the current course that he has taken. MENTAL STATUS: The patient in the day area gave fair eye contact. He had a very stiff posture. He had a staring gaze. He seemed a little more introspective today. He had almost a thoughtful manner. His affect was constricted though it seemed as though he was quite tense and anxious as well. His mood was dysphoric. It was difficult to say how distress he might be feeling. ASSESSMENT: I will continue the current diagnosis and treatment plan. I will continue to make efforts to encourage the patient towards working with the treatment team as well as with the courts to initiate appropriate treatment which includes medications as a step towards discharge. I discussed with the patient that if we were to start an antipsychotic medication in the next few days, we could anticipate reasonable chance that he could be discharged by mid week next week. He does understand that otherwise pursuing the court process will at least be in the hospital since his May 07 hearing. We will continue to focus on stabilization and education. LAURIE
[2017-04-08] MEDS: HALOPERIDOL LACTATE 5 MG/ML 1 ML VIAL IM PRN (18:39)
[2017-04-08] MEDS: LORazepam 2 MG/ML INJ IM PRN (18:40)
[2017-04-09] MEDS ORDERED: diphenhydrAMINE 50 MG/ML 1 ML VIAL IM PRN (12:11)
--- NOTE | 2017-04-09 13:15 | PN ---
DATE OF SERVICE: 04/08/2017 CHIEF COMPLAINT: The patient was admitted due to odd behavior. He was making delusional statements, he was taking in an odd nonsensical manner with made up words. He had aggressive behavior. He made references to cannibals, Alvaro, terrorists and others. He was admitted on petition for involuntary hospitalization. INTERVAL HISTORY: The patient has been having significant problems. It is noted that he has had a range of difficult interactions with staff. He has had some problems where he got loud and quite intense in the social work office. He has had some behavior on the unit where he had inappropriate interactions and intrusive interactions with staff and other patients. He has declined to take any medications. It is noted that yesterday evening he had a very difficult time. He got into serious agitation and was very threatening towards staff. I refer the reader to the nursing notes below. Around 8:50 in the evening he received an injection of Haldol and Ativan for his disruptive and threatening behavior. After that he seemed to quite down. He slept fairly well last night. The day he stayed in his room. He has made efforts to bring excessive amounts of food in his room as opposed to coming out to the dining area to eat. Other than that he has just remained in his room in his bed. Staff did note last evening after the situation where he received other medications that he was in his room pulling down currents. Staff removed the curtains from his room for his safety. It was not clear what the intention was. The patient did not say anything about this and there was concern that there might be potential for his acting in some way to harm himself or harm others. When I saw the patient he had little to say about last evening events. He said he simple was in the television room and he was cheering on some things he was seeing on TV that he was enjoying. He was unaware that he had any kind of inappropriate behavior. Beyond that he then declined to speak anymore. I asked if he had any questions or concerns or had any other issues that he wished to address. He again said, No. MENTAL STATUS EXAM: The patient was in his room lying down. He did not give any eye contact. He said a few things and then declined to make any further comments. He did not ask any questions. He had a somewhat quite though angry manner in his voice. He seemed to be somewhat distressed. ASSESSMENT: I will continue the current diagnosis and treatment plan. At this point the patient will remain off psychotropic medications. I have discussed with staff the need to have close monitoring for any risk for aggressive behavior. The concern is that the patient has had what appeared to be heightened paranoia with foul and intense language with references to things such as God brining wrath on people and other somewhat vague statements. There is concern for his functioning. We may need to look at additional medication use if it appears there is escalation in risky behavior. I will get regular updates from staff as appropriate. 04/07/17 20:42 - Nurse Note by Shane Kennedy Acct Num: [id number] : 1985 Patient Age: 31 Patient observed being disruptive and yelling out loud in the [facility]. Patient was instructed to not yell out loud. Featheredge Machine Operator set limits and requested that patient not yell out loud as he was being very disruptive on the unit. Patient then stated "Why are you violating my rights? It's because I am an [employer]." Patient also stated, "You will bow down to me." Patient continued to raise voice and was presenting very agitated and was not responding to verbal redirection and limit setting. Patient continued to state delusions and psychotic statements of being tape recorded. Patient said "Shut the door and get out." Pt. continued to yell out loud and was not responding to staff's direction to lower his voice due to peers being reportedly fearful to enter the [facility]. Patient received IM haldol and ativan due to his psychosis and agitation, security was notified to assist. After receiving IM medications, senior grant writer was completing rounds when patient stated "Get the fuck outta here you bitch!" Patient continues to present manic and disorganized. Initialized on 04/07/17 20:42 - END OF NOTE 04/07/17 20:45 - Nurse Note by Melanie Butts Acct Num: [id number] : 1985 Patient Age: 31 pt has been in [facility] yelling out and being disruptive in the [facility]. peers are fearful to go into [facility] [place], [place] d/t pt stating bizzare statements and intimidating them until they leave. pt then will close the lounge door and continue yelling out. pt asked multiple times to quiet his voice to indoor levels and pt only would state," I am encouraging my people to stand for what they believe in, do you have a problem with that ." pt then started to talk in [facility] and was trying to intimidate senior grant writer. senior grant writer told pt that the lounge belongs to the pts on the unit, all pts. pt would not comply with staff and again was yelling out and again a male peer was in the lounge and stated," I am just going to get out of here right now." this pt then again, was asked to maintain a voice level that is non threatening to peers. pt again became belligerent and confrontational. pt making statements of how many problems we will have with him if we just don't leave him alone. PRN IM's given per dr roth's order. security aided in the med assist Initialized on 04/07/17 20:45 - END OF NOTE MTDD
[2017-04-09] MEDS: BENZTROPINE MESYLATE 1 MG TAB PO SCH ×2 (14:00→21:41)
[2017-04-09] MEDS: HALOPERIDOL 5 MG TAB PO SCH ×2 (14:00→21:41)
[2017-04-09] MEDS ORDERED: MELATONIN 5 MG TABLET PO PRN (23:13)
--- NOTE | 2017-04-10 08:26 | PN ---
DATE OF SERVICE: 04/09/2017 CHIEF COMPLAINT: The patient was admitted due to odd behavior. He was making delusional statements. He was talking in an odd nonsensical manner with made up words. He had aggressive behavior. He made references to cannibals, Alvaro, terrorists and others. He was admitted on petition for involuntary hospitalization. INTERVAL HISTORY: The patient has been doing fair. He had a difficult evening yesterday with disruptive and threatening behavior at approximately 6:45 in the evening. He became agitated. He was swearing and using much profane language. He was intruding on situations of other patients which is something that had been discussed previously as an issue that he needed to avoid. He became agitated. He made references to wrath of God, Apaches and other vague utterances. (see Nursing note below) He received Haldol 5 mg IM with Ativan 1 mg IM. He slept fairly well last night. He tends to isolate himself in his room. Today, he continues to be fairly isolated. When we talked, I reviewed issues in regards to his petition. We discussed a plan for him to get started on medications with the aim of getting discharged. He was in agreement with that. He stated he was willing to talk to the employment law attorney to sign a deferral. He did make some odd and delusional statements when we talked about the documentation though he seemed to be appropriate when we talked about his medications. He has not had change in his general health. He tolerates psychotropic medications. MENTAL STATUS: The patient initially was distressed and somewhat angry. He tended to ramble though could be redirected. His affect was intense. As the interview went on he became a little calmer. His mood was dysphoric. He was somewhat distressed. ASSESSMENT: I will continue the current diagnosis and treatment plan. The patient is willing to sign a deferral. I will start him on Haldol 5 mg twice a day with Cogentin 1 mg twice a day. I discussed that I would anticipate it would take 7 to 10 days for him to get stabilized on the medication. I discussed that within that time frame, we would like to switch him to a longacting injectable Haldol and that I would anticipate discharging him. He did ask about possible living circumstances and would be willing to go to a detention upon discharge. We will continue to focus on stabilization and discharge planning. 04/08/17 18:48 - Nurse Note by Melanie Butts [facility] Num: [id number] : 1985 Patient Age: 31 pt sitting in back hallway and when policy writer walked by pt with a new admit pt stated," Prateek cooper." " Don't fuckin listen to a word she says, she lies, man don't listen to her." When policy writer turned to pt, pt stated," What are you looking at?" policy writer told pt that is vulgar language will not be accepted and that he needs to maintain is behavior. pt stated," Your the one bothering me right now, be gone." when U tech walked by pt, pt stated," Don't fucking stare at me." security called and IM's per Doctor order given. pt fought and tried to punch security. pt did not connect. security and staff tried to talk with pt regarding his behavior and pt just stated to security dill," The wrath of God will come upon you, you turned against us, the apaches, you will pay for that." pt then went and sat down at the back table calling policy writer duglas tran, yossi tran, you are dismissed." Initialized on 04/08/17 18:48 - END OF NOTE LAURIE
[2017-04-10] MEDS: BENZTROPINE MESYLATE 1 MG TAB PO SCH ×2 (09:33→21:33)
[2017-04-10] MEDS: HALOPERIDOL 5 MG TAB PO SCH ×2 (09:33→21:33)
--- NOTE | 2017-04-10 16:30 | P.PN ---
Progress Note - Text Date of service: 04/10/2017 Chief complaint: "I want to talk to you" Subjective: The patient has been seen today as follow-up, chart reviewed, case discussed with the treatment team. Patient slept about 4 hours last night. Patient has been not going to groups and other unit activities. Patient reports fair appetite problems. Patient continued to present very paranoid, and disorganized. He was noticed dancing and acting bizarre in front of TV. Nurses reports the patient continued to be delusional and reports hearing voices. The patient came today only to discuss his court trial and deferral. He stated doesn 't want to take any medications because "it will mess up with my mind and make me nauseated" Patient was able to understand that he has to take his medications in order for the deferral to be effective and useful. He requested to be on other psychiatric medications besides Haldol. He agreed to take Seroquel but only "low dose". I will start patient on 100mg BID. Review of other systems: Patient denies any physical symptoms besides what has been mentioned above. No breathing problems, no chest pain reported today. Objective: Vitals has been reviewed. Mental status examination; Appearance: The patient appears bizarre with long pittman and long hair. Dressed in hospital gown Gait/posture: Normal arm swinging: No abnormal movements. Attitude and behavior: not engaged, not cooperative, poor eye contact. Motor activity: increased psychomotor activity Speech:pressured Mood: anxious Affect:constricted Thought form: Preoccupied with discharge. [place]. Fixated on court and deferral Thought content: Paranoid. Looks internally preoccupied but denies suicidal thoughts, denies homicidal thoughts, denies intentions or plans. Perception: Denies any auditory or visual hallucinations but nurses report is different Attention: No impairment. Insight: Patient has poor insight about his psychiatric disorder. Judgment: Patient has poor judgment about his psychiatric treatment. Assessment: Schizophrenia Plan: Continue with inpatient psychiatric hospitalization for monitoring and continue treatment. Continue group therapy and other unit activities. Continue psychiatric medications: Will start Seroquel 100mg PO BID and keep Haldol and cogentin orders. Patient continued to refuse Haldol and cogentin Continue follow up
[2017-04-10] MEDS: QUEtiapine 100 MG TAB PO SCH ×2 (16:52→21:32)
[2017-04-11] MEDS: BENZTROPINE MESYLATE 1 MG TAB PO SCH ×2 (10:04→21:16)
[2017-04-11] MEDS: QUEtiapine 100 MG TAB PO SCH ×3 (10:04→21:13)
[2017-04-11] MEDS: HALOPERIDOL 5 MG TAB PO SCH ×2 (10:04→21:16)
--- NOTE | 2017-04-11 11:47 | P.PN ---
Progress Note - Text Date of service:04/11/2017 Chief complaint: "I feel great" Subjective: The patient has been seen today as follow-up, chart reviewed, case discussed with the treatment team. Patient slept about 4 hours last night according to nursing report but patient stated he slept for more than 6 hours. Patient reports that has been going sometimes to groups but he prefer to stay away from other patients.Patient reports good appetite problems. Patient still presented very evasive and superficial in his answers. He looks paranoid and RIS. He denies any auditory hallucinations and denies delusions. He also denies feeling paranoid, depressed or any mood swings. He denies feeling suicidal and denies homicidal thoughts. The patient is compliant with his medications and denies any adverse reactions. Nursing report patient refused to take Seroquel in front of them and concerned about pt cheating his medication. Discussed with pt to take medication in front of nurses, and he agreed. Review of other systems: Patient denies any physical symptoms besides what has been mentioned above. No breathing problems, no chest pain reported today. Objective: Vitals has been reviewed. Mental status examination; Appearance: The patient appears bizarre with long pittman and long hair. Dressed in hospital gown Gait/posture: Normal arm swinging: No abnormal movements. Attitude and behavior: not engaged, not cooperative, poor eye contact. Motor activity: increased psychomotor activity Speech:slow, not spontaneous, prompted Mood: anxious Affect:constricted Thought form: Preoccupied with discharge. [place]. Fixated on court and deferral Thought content: Paranoid. Looks internally preoccupied but denies suicidal thoughts, denies homicidal thoughts, denies intentions or plans. Perception: Denies any auditory or visual hallucinations but nurses report is different Attention: No impairment. Insight: Patient has poor insight about his psychiatric disorder. Judgment: Patient has poor judgment about his psychiatric treatment. Assessment: Schizophrenia Plan: Continue with inpatient psychiatric hospitalization for monitoring and continue treatment. Continue group therapy and other unit activities. Continue psychiatric medications: Will continue Seroquel 100mg PO BID and keep Haldol and cogentin orders. Patient continued to refuse Haldol and cogentin Continue follow up
[2017-04-12] MEDS: QUEtiapine 100 MG TAB PO SCH (09:12)
[2017-04-12] MEDS: HALOPERIDOL 5 MG TAB PO SCH ×2 (09:12→21:56)
[2017-04-12] MEDS: BENZTROPINE MESYLATE 1 MG TAB PO SCH ×2 (09:13→21:56)
--- NOTE | 2017-04-12 19:01 | PN ---
DATE OF SERVICE: 04/12/2017 CHIEF COMPLAINT: The patient was admitted due to odd behavior. He was making delusional statements. He was talking in an odd nonsensical manner with made up words. He had aggressive behavior. He made references to cannibals, Alvaro, terrorists and others. He was admitted on petition for involuntary hospitalization. INTERVAL HISTORY: The patient is doing about the same. I had an extensive discussion on Wednesday regarding discharge planning which includes his being started on antipsychotic medication. The patient was somewhat accepting of the idea though he was quite adamant about the idea. He did talk to his attorney law clerk relating to his petition for involuntary hospitalization. Over the weekend, the covering psychiatrist had started him on Seroquel. According to the staff , he did take some Seroquel. However, the best they were able to determine, he cheeked the medications and actually took none. Today, he has reverted back to talking about medications will impair his thinking and that he cannot go out in the world and function properly. When he talked about these things, most of his references were bizarre and not connected to any kind of a reality idea. It is noteworthy that one statement that he made was that if he went out in the world someone might attack me, someone who is trying to do a robbery and has a knife. He then made more disjointed statements about this issue including something about people not being able to find jobs. When I shared with the patient, concern about his paranoia, he made various claims such as the police having said there are body parts of children in the [place]. It was noteworthy that at the start of the interview, the patient was in a foul mood and he started describing how well he had been doing. He said that he had read over the assessments of staff and other than one minor issue, he was in agreement. He felt that this progress that he was making would be in the favor of his being able to be discharged soon. I shared with the patient as I have on numerous occasions that the issues relating to the petition and court hearing will revolved around the events at the time of the petition and not relating to any current function or behavior. I discussed with the patient that if he is under court ordered treatment, he would not be discharged until he received long -acting injectable medication. At this point, I would favor Haldol decanoate. The patient said he was very concerned about what effects medications would have on his thinking. I discussed with the patient that if he would start the oral Haldol as had been ordered that we would be able to work with him and see what effects the medicine has. We could adjust based on side effects and any other issues. On the other hand, the patient understands that if he declines taking any oral medications, we still have the option of Haldol decanoate given that he has received two injections of short acting Haldol without any significant negative effects. He had not shown any potential side effect other than some possible sedation. Noted that he was also on Ativan at the time which may have been a significant factor in that regard. At that point, the patient made a number of comments that were tangential to issues of being discussed. He has not had change in his general health. He tolerates psychotropic medications. MENTAL STATUS: The patient initially in the interview was somewhat calm. He was spontaneous in things he said. As the interview went on, he got more anxious and distressed. He had paranoid thinking. He made references to people that . His affect was intense. Mood dysphoric. He was significantly distress. ASSESSMENT: I will continue the current diagnosis and treatment plan. I indicated to the patient that the only medication we will be prescribing at present is oral Haldol once the court process is completed, I would like to initiate Haldol decanoate. I strongly encourage the patient to consider talking to his attorney law clerk and approaching the court to assess the outcome of his petition for involuntary treatment. I discussed that the very high likelihood is that he will be court ordered to a 90 day treatment program. I indicated that prior to discharge, he would be receiving Haldol decanoate IM. I discussed with the patient that if he were to start oral medications and set up some of the legal options with his attorney law clerk, that would allow him to be discharged much sooner than waiting for the hearing that is scheduled for May 07. I strongly encourage the patient to start taking oral Haldol as the best option to push these things forward in regards to a timely discharge. The patient had an angry manner at the end of the interview. I indicated to staff to monitor his behavior for risk of harm to self/others. One concern I have is with his statements about worrying of people "out in the world" who would be threatening to him due to the threat of having knives. Given his level of paranoia, the concern is he may be projecting his own impulses regarding threats with a knife and that he could put others at risk, in this regard. It was an unusual statement, with specificity regarding a knife that increases concern. LAURIE
[2017-04-13] MEDS: HALOPERIDOL 5 MG TAB PO SCH ×2 (09:04→21:44)
[2017-04-13] MEDS: BENZTROPINE MESYLATE 1 MG TAB PO SCH ×2 (09:04→21:44)
--- NOTE | 2017-04-13 16:02 | PN ---
DATE OF SERVICE: 04/13/2017 CHIEF COMPLAINT: The patient was admitted due to odd behavior. He was making delusional statements. He was talking in an odd nonsensical manner with made up words. He had aggressive behavior. He made references to cannibals, Alvaro, terrorists and others. He was admitted on petition for involuntary hospitalization. INTERVAL HISTORY: The patient continues to do the same. He wears hospital gown rather than putting on his own clothes. He wanders about the unit. He may attend a group sporadically though most of the time he either declines or just does not show up for a group. He wanders about the unit. He continues to talk about his ideas of being an Israelite and how that affects his way of functioning. He continues to decline taking any medications. He has made statements about wanting a hearing with a trim master operator and not going through a jury process which he had initially demanded. He understands that he could look at options relating to the court if he contacts his prosecuting attorney. He, the best that we know has not made any effort to do that. He has not had significant behavior issues in the last day other than some odd statements with paranoid thoughts. He has not had change in his general health. He continues off all psychotropic medications. MENTAL STATUS: The patient gave fair eye contact. He had a tense manner. He responded to a few questions. He made some comments that were disconnected from the subject at hand. His affect was intense. His mood reserved. He seemed somewhat distressed. ASSESSMENT: I will continue the current diagnosis and treatment plan. We continue to encourage the patient to talk to his court appointment prosecuting attorney so that he can review legal options that he has. We continue to discuss discharge planning issues with the patient. We will continue to focus on stabilization and discharge planning. LAURIE
[2017-04-14] MEDS: BENZTROPINE MESYLATE 1 MG TAB PO SCH ×2 (10:05→22:09)
[2017-04-14] MEDS: HALOPERIDOL 5 MG TAB PO SCH ×2 (10:06→22:09)
[2017-04-14] MEDS: LORazepam 2 MG/ML INJ IM PRN (18:40)
[2017-04-14] MEDS: HALOPERIDOL LACTATE 5 MG/ML 1 ML VIAL IM PRN (18:40)
[2017-04-15] MEDS: HALOPERIDOL 5 MG TAB PO SCH ×2 (09:51→20:25)
[2017-04-15] MEDS: BENZTROPINE MESYLATE 1 MG TAB PO SCH ×2 (09:51→20:25)
--- NOTE | 2017-04-15 17:29 | PN ---
PROGRESS NOTE Date of Service: DATE OF SERVICE: 04/14/2017 CHIEF COMPLAINT: The patient was admitted due to odd behavior. He was making delusional statements. He was talking in an odd, nonsensical manner with made up words. He had aggressive behavior. He made references to cannibals, Alvaro, terrorists and others. He was admitted on petition for involuntary hospitalization. INTERVAL HISTORY: The patient continues to function as he has. He continues with delusional thoughts. He pushes limits. He makes references to a number of things that are not connected with current situation. He often talks about his being a "Israelite" and that somehow he relates that to many different aspects of his current situation. He at one point had made references to things like being a hostage and being in danger in various ways. He has much difficulty engaging in a productive conversation about treatment and his situation. He had talked about the option of talking to his claims attorney for a number of issues related to his involuntary treatment process, however, he has not made any efforts at calling the claims attorney. He talked about the possibility of going before the shut off worker with various requests though it is not clear what his intent is in that regard. He has not had change in his general health. He tolerates his psychotropic medications. MENTAL STATUS EXAM: The patient sat in a rigid posture. Eye contact was a staring gaze. He answered questions with brief responses. He often rambled and would go off and talk about things that had no connection with his current situation or current mental health issues. His affect was intense. Toward the end of the interview he became angry. His mood was dysphoric. He continued with paranoid delusions. He was significantly distressed. ASSESSMENT: I will continue the current diagnosis and treatment plan. I continued to talk with the patient about treatment options. I have indicated to the patient that should the petition be upheld we would be administering Haldol Decanoate. I encouraged the patient to consider taking oral Haldol as an option to allow him too have a better opportunity to fully assess the positives and any negatives related to the medication. He understands that otherwise if the petition is upheld and he does not take oral medications, that we will be administering the Haldol Decanoate. I made an effort to explain some of the basics related to the medication. It is noted that in the course of the discussion the patient seemed to get quite angry and intense and essentially walked out of the room without asking any questions or looking for any clarification. MMEDWINL / IJN: [id number] /
[2017-04-16] MEDS: HALOPERIDOL 5 MG TAB PO SCH ×2 (10:04→21:13)
[2017-04-16] MEDS: BENZTROPINE MESYLATE 1 MG TAB PO SCH ×2 (10:04→21:12)
--- NOTE | 2017-04-16 10:36 | PN ---
PROGRESS NOTE Date of Service: DATE OF SERVICE: April 15, 2017 CHIEF COMPLAINT: The patient was admitted due to odd behavior. He was making delusional statements. He was talking in an odd nonsensical manner with made up words. He had aggressive behavior. He made references to cannibals, Alvaro, terrorists and others. He was admitted on petition for involuntary hospitalization. INTERVAL HISTORY: Patient continues to do the same. He continues to express a odd and paranoid thoughts. He is frequently making reference to "Israelites." He will accuse others of threatening behavior towards him. It is noteworthy that yesterday he had a confrontational argument with another patient. The patient had made statements in group and elsewhere on the night before using a racially profane description of the of the other person. Then yesterday apparently the two of them got into an argument. The patient also made a statement during the argument where he dismissed the other person saying "go away boy." He pointed his finger at the other person in a provocative manner. The other person pushed his hand away and staff were there immediately to end the argument and separate the two people. It is noted that in talking with him about his history, the patient made a statement to one staff person that he came across from [place] to the [place] hiding in the back of a truck. The patient denied that happened in spite of the fact that he told that spontaneously to a staff member. He also stated to a staff member that he had four legal charges pending in [place]. It also was noted that when he was referred to admission, police had made contact with authorities in [place] and indicated that he had a treatment order for mental health treatment in [place] as well. Yesterday the patient once again talked about the court hearing and the whole process of regarding involuntary treatment. I had an extensive discussion making an effort to explain the court process and what a 90 day treatment order would mean. In the midst of that, the patient seemed to get quite angry and did not make an effort to continue any immediate full discussion. Later on in the day, yesterday the patient got into an agitated state. He started demanding that a patient leave the area where he was at. He was using profane language. He was not able to respond to staff support and redirection. I refer the reader to the nursing note at the bottom of this note for details. The patient received Haldol IM 10 mg and Ativan IM 2 mg (see nursing note below). I saw the patient, one hour after the injection. He was up and walking about. He was showing no signs of sedation. There was no indication of extrapyramidal side effects. The patient appeared to have tolerated the IM medications well. He did have a calmer manner. Today he has wandered some around the unit. He has tended to be a little more reserved in his manner and distant from others. He comes out for meals. He has not had any difficult behavior today. MENTAL STATUS: Patient was in his room lying down. I also saw him later on in the day area. Patient declined to review any issues. I asked if he had any concerns. He simply said no. He had a quiet manner. He was reserved. He seemed to have a somewhat angry manner. He appeared to be somewhat distressed. ASSESSMENT: I will continue the current diagnosis and treatment plan. His court hearing has been moved up to April 23. The patient was informed of this. We will continue to focus on stabilization and discharge planning. 04/14/17 20:52 - Nurse Note by Melanie Butts [facility] Num: [id number] : 1985 Patient Age: 31 pt was in the back hallway sitting at table eating dinner. female peer sat down at table and staff immediately noticed that pt was irritated. Staff asked pt if there was something wrong and pt stated that peer has no right to sit at his table. staff informed pt that the table belongs to the unit and any and all peers are welcome to sit at the table. pt stated," No pedophiles allowed at his table!" staff told pt that was unacceptable behavior and the female peer had every right to sit at the table. pt started to yell out the female peer is a pedophile and female peer would not say a word. pt made a comment about the peers silence and staff stated why should the peer respond to his inappropriate comment and that type of language will not be allowed on the unit. pt became angry and started to yell and sing very loud. male peer walked by pt after this incident and this pt stated to male peer," Get out of here you Fucking Retard." Pt yelled out repeatedly, "NO PEDOPHILES ARE WELCOME AND NEED TO GET OUT, YOU ALL ARE PEDOPHILES." pt then again yelling and singing and chanting loudly in back hallway. pt making rude comments to anyone that walked by him. pt had been told multiple times by staff to please maintain composure and keep voice at an indoor tone and pt would comment that he has a right to sing to his people. Ativan 2mg IM and Haldol 10mg IM given. pt took med w/o incident but with security also present for the med assist. pt then told wrtier that he is more powerful then web content writer and web content writer is evil and screamed obscenities at web content writer and Dawit the security rover. pt told web content writer that white people have no claim to his land and that we take all lands that do not belong to us. pt asked to maintain is composure and pt yelled louder and louder and telling web content writer to leave and be gone while swearing at web content writer. pt stated to web content writer," You do not belong here you are not the one that is in control." Dr Thibodeaux came out and stated to give pt IM's PRN and Dr Thibodeaux told that IM's have been given. Initialized on 04/14/17 20:52 - END OF NOTE MMODL / IJN: [id number] / MTDD
--- NOTE | 2017-04-17 07:44 | PN ---
PROGRESS NOTE DATE OF SERVICE: 04/16/2017 CHIEF COMPLAINT: The patient was admitted due to odd behavior. He was making delusional statements. He was talking in an odd nonsensical manner with made up words. He had aggressive behavior. He made reference to cannibals, Alvaro, terrorists and others. He was admitted on petition for involuntary hospitalization. INTERVAL HISTORY: The patient has been doing fair. He had a quiet evening last night. He slept well. Today he has been up and about. He said that he feels he is withdrawing today from the medicine he received 2 days prior as he received p.r.n. later in the afternoon for agitation. He cannot really describe what he is experiencing when he says it is "withdrawal". He tends to isolate himself though he does come out some. He spends a fair amount of time on the telephone though it is not clear who he might be talking to. I have offered him on several occasions that if he has important supports or connections that it might be helpful to set up a meeting with the supportive people he has to help address assessment and treatment planning. He had consistently declined that. He asked a few questions about the upcoming hearing and what the expectations would be for a 90-day treatment program. I discussed how a treatment program works. We also talked about the possibility that treatment orders can be extended under certain circumstances, which I described. I reviewed the expectations for a treatment order, which namely would be making appointments to see a counselor and getting followup for medications along with taking medications consistently. I discussed that I would anticipate if the petition is upheld that we would look towards long-acting injectable medication; most likely Haldol. I encouraged him to think about getting started on oral Haldol, which would be to his benefit and something he could always stop if he chose to if it turned out that the petition was not upheld by the courts. Today the patient made some statements about how he feels that he has been accommodating to the unit. He made comments that he had some issues early on in his hospital stay but he wanted me to understand that he has been functioning appropriately. He seemed to suggest that this kind of information would be added into the picture in regards to his petition for involuntary treatment. I discussed with the patient the plans towards a transfer to another physician for followup as well as to address the issues with the court hearing coming up next Wednesday for his petition. The patient continues off psychotropic medications. MENTAL STATUS: Patient was some mildly restless. He made a few comments though he did not really answer questions. His affect was blunted. His mood reserved. He did not appear to be significantly distressed. ASSESSMENT: I will continue the current diagnosis and treatment plan. Patient continues to show signs of paranoia in his thinking. He also continues with odd and disconnected statements. Since his IM injection Wednesday he seems to have done better in terms of being more quiet and reserved in his manner and functioning somewhat more appropriately on the unit. Whether or not the quieting in his thoughts and behavior relate to his antipsychotic medication remains to be seen, however that certainly is one consideration would be in support of his receiving long-acting injectable Haldol. RACHELLE / CLEMENTEN: [id number] /
[2017-04-17] MEDS: HALOPERIDOL 5 MG TAB PO SCH ×2 (09:12→20:20)
[2017-04-17] MEDS: BENZTROPINE MESYLATE 1 MG TAB PO SCH ×2 (09:12→20:20)
--- NOTE | 2017-04-17 15:41 | PN ---
PROGRESS NOTE DATE OF SERVICE: 04/17/2017. CHIEF COMPLAINT: The patient was admitted due to odd behavior. He was making delusional statements. He was talking in an odd nonsensical manner with made up words. He had aggressive behavior. He made reference to cannibals, Alvaro, terrorists and others. He was admitted on petition for involuntary hospitalization. INTERVAL HISTORY: Patient has been doing fair. He had a quiet evening last night. Staff have observed that since his IM that was given urgently on the day before. He has had a more quiet manner. He has had some conflicts with others and now has seemed to be a little more withdrawn and as they described it, "low mcnally." Patient has no specific complaints or concerns today. He understands that his hearing on his petition will be next Wednesday. He has not had a change in his general health. He tolerates his psychotropic medications. MENTAL STATUS EXAM: The patient had a quiet manner. He did not say much. His affect was flat. His mood reserved. He was withdrawn and seemed to have a suspiciousness in his thoughts. He was somewhat distressed. ASSESSMENT: I will continue the current diagnosis and treatment plan. He continues to show paranoid thoughts and other delusions. He continues to have fluctuating mood and behavior. He has difficulty in social interactions. We will continue to focus on stabilization and discharge planning. RACHELLE / SAUD: [id number] /
[2017-04-17] MEDS: HALOPERIDOL LACTATE 5 MG/ML 1 ML VIAL IM PRN (23:16)
[2017-04-17] MEDS: LORazepam 2 MG/ML INJ IM PRN (23:35)
[2017-04-17] MEDS ORDERED: diphenhydrAMINE 50 MG/ML 1 ML VIAL IM STA (23:50)
[2017-04-17] MEDS ORDERED: HALOPERIDOL 5 MG TAB PO STA (23:51)
[2017-04-17] MEDS ORDERED: HALOPERIDOL LACTATE 5 MG/ML 1 ML VIAL IM STA (23:56)
[2017-04-18] MEDS: HALOPERIDOL 5 MG TAB PO SCH ×2 (09:26→20:31)
[2017-04-18] MEDS: BENZTROPINE MESYLATE 1 MG TAB PO SCH ×2 (09:26→20:31)
--- NOTE | 2017-04-18 15:54 | PN ---
PROGRESS NOTE DATE OF SERVICE: 04/18/2017 CHIEF COMPLAINT: The patient was admitted due to odd behavior. He was making delusional statements. He was talking in an odd nonsensical manner with made up words. He had aggressive behavior. He made reference to cannibals Alvaro, terrorists and others. He was admitted on petition for involuntary hospitalization. INTERVAL HISTORY: The patient had significant behavior difficulties last evening around 11:30. He became belligerent towards staff, he was uncooperative. He had put a slippery substance on the floor near the door for about 3 feet which he suggested was to make people fall so that he could protect himself. He yelled at people to "get out of my house." He became very agitated and started screaming at staff. He did require a p.r.n. medication. He continued to be quite agitated with yelling and swearing. He made the comment that staff were "violating my ass by putting foreign objects in it." He spit at staff. He received a 2nd dose of Haldol 10 mg at 00:13 after the 1st injection of Haldol 10 mg at 23:39 [place] [place] He responded fairly well to the Haldol. He also was given Benadryl 100 mg IM with a 2nd dose. He did not show any EPS signs. He was able to be quiet after that. He slept fairly well. Today he has been mostly in his room. He lays down though it is not clear he actually sleeps. Has not had change in his general health. He tolerates his psychotropic medications. MENTAL STATUS EXAM: Patient was lying in his room. He said he was fine. He did not make any other comments. He declined to talk in any way. I gave him the opportunity to ask questions or express concerns. He had a withdrawn manner. He did not appear to be significantly distressed. ASSESSMENT: I will continue the current diagnosis and treatment plan. We will continue to monitor closely particularly for health and safety. We will continue to focus on stabilization and discharge planning. 04/17/17 23:00 (created 04/18/17 06:13) - Nurse Note by Lisseth Montelongo Acct Num: [id number] : 1985 Patient Age: 31 While staff was doing 2300 Pt Status Safety Round, encountered a slippery substance on the floor inside pt's room, covering floor from the door to 3 feet in the room. When questioned, pt refused to state what he put on his floor, yelling at staff "to get out of my house!" Attempts to educate staff regarding this being a safety issue for himself and staff was met with pt continuing to yell. Staff informed application integration engineer. Initialized on 04/18/17 06:13 - END OF NOTE 04/17/17 23:39 - Nurse Note by Lenin Felix Acct Num: [id number] : 1985 Patient Age: 31 pt was belligerent to tech as she was doing rounds, charge nurse stated to give Im, pt was uncooperative at first but when a couple people came in to help, he laid down on the mattress and allowed the injection, pt got up and was screaming at staff because he didn't want the shot. pt stated "i'm a and i don't want this stuff in my body", charge nurse gave an injection of ativan. Initialized on 04/17/17 23:39 - END OF NOTE 04/18/17 00:13 (created 04/18/17 05:41) - Nurse Note by Lisseth Montelongo Acct Num: [id number] : 1985 Patient Age: 31 Pt continued to be agitated aeb standing on his bed frame (pt put mattress on floor) yelling and swearing at staff. Pt repeatedly yelling that staff were "violating my ass by putting foreign objects in it" (referring to IM injections) . Pt then spit at female staff with saliva landing on front of staff and in her hair. Pt then yelled at same female staff "you're a fucking pig." Staff repeatedly attempted to provide support and redirection /c limited success. Correctional Security Officer Physician Dr. Thibodeaux was contacted; additional rx order of Haldol 10 mg IM given. Will reassess within one hour. Initialized on 04/18/17 05:41 - END OF NOTE MMODL / IJN: [id number] / MTDD
[2017-04-19] MEDS: BENZTROPINE MESYLATE 1 MG TAB PO SCH ×2 (09:55→19:54)
[2017-04-19] MEDS: HALOPERIDOL 5 MG TAB PO SCH ×2 (09:55→19:54)
--- NOTE | 2017-04-19 16:22 | PN ---
PROGRESS NOTE DATE OF SERVICE: 04/19/2017. CHIEF COMPLAINT: The patient was admitted due to odd behavior. He was making delusional statements. He was talking in an odd nonsensical manner with made up words. He had aggressive behavior. He made references to cannibals, Alvaro, terrorists, and others. He was admitted on petition for involuntary hospitalization. SUMMARY: The patient was admitted for delusions, aggressive behavior, and other psychotic symptoms. He had come across from [place]. He has arrest warrants in [place] and a mental health treatment order in [place] as well. He has dual citizenship. He has been adamant about not taking medications. He has significant paranoid delusions. On the unit he has been somewhat contained in behavior, though he has had intermittent episodes of getting very agitated and requiring p.r.n. medications. He responds generally to 10 mg of Haldol with 2 mg of Ativan. In one recent episode he required a second 10 mg IM dose of Haldol for containment. I refer the reader to the note section to review nursing notes for a number of these incidents, which are also documented in my progress notes. He has a court hearing pending for Wednesday which includes his demand for a jury trial. I strongly encouraged him to start on oral Haldol in anticipation that he would receive Haldol decanoate as a long-acting medication should the petition be upheld in court. There is a very high likelihood of this. The patient understands that he has received adequate doses of Haldol to ensure that he is not allergic to the medication, should he refuse oral medications. RECOMMENDATION: My recommendations prior to discharge would be Haldol Decanoate 100 mg IM with 3 to 4 days of monitoring prior to discharge. INTERVAL HISTORY: The patient has been doing fair, he continues to have ups and downs in his mood. He continues to be quite aggressive at times. Staff has noted that he can do fairly well in the daytime, though at nighttime he often escalates, usually from about 6 p.m. on. He has generally required IM medications toward late evening. He can present himself in a somewhat contained manner some of the time, though he continues to make persistent delusional statements and references to things like "Israelites." He has no insight into his condition. He has asked me on a number of occasions what my assessment is and when I share my assessment of psychosis and possible schizophrenia with paranoid delusions he will ask what supports that. When I go into review of that which includes things like references to police telling him there are body parts of children in the [place], that there are people raping and eating children, that there are terrorists threats throughout [place], that he has made very strong racially charge statements, as well as a very charged statements about sexual orientation. When I reviewed that police reported felony warrants in [place] and mental health treatment order, typically he gets angry through the course of that discussion and then walks out in a very distressed manner. There has been no substantial change in his thoughts or behavior. He has made reference to threat such as knives with a concern that he may project his own impulses toward others. He sleeps fair. He has not shown significant side effects or problems when he has received IM Haldol. He has not shows dystonia, akathesia, tremors, sedation. He has not had change in his general health. He tolerates his psychotropic medications. MENTAL STATUS: Patient gave fair eye contact. He had a tense manner. His affect was angry. He was dysphoric and was significantly distressed. He stated today that he did not want to talk to me. ASSESSMENT AND PLAN: I will continue the current diagnosis and treatment plan. At this point, the plan is for to be available for the court hearing on Wednesday in regard to his petition for involuntary hospitalization. As noted, my recommendation is that should the petition be upheld, he receive Haldol decanoate 100 mg IM and then have some appropriate time period for monitoring, possibly 3 to 4 days and then discharge to mental health follow up. He does not have a place to live. I do believe the patient has significant paranoia and presents a danger in the community without significant treatment interventions. MMODL / IJN: [id number] / LAURIE
[2017-04-20] MEDS: BENZTROPINE MESYLATE 1 MG TAB PO SCH ×2 (09:35→21:43)
[2017-04-20] MEDS: HALOPERIDOL 5 MG TAB PO SCH ×2 (09:35→21:43)
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
[2017-04-21] MEDS: HALOPERIDOL 5 MG TAB PO SCH ×2 (09:09→21:55)
[2017-04-21] MEDS: BENZTROPINE MESYLATE 1 MG TAB PO SCH ×2 (09:09→21:55)
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
[2017-04-22] MEDS: BENZTROPINE MESYLATE 1 MG TAB PO SCH ×2 (09:04→19:37)
[2017-04-22] MEDS: HALOPERIDOL 5 MG TAB PO SCH ×2 (09:05→19:37)
--- NOTE | 2017-04-22 11:52 | P.PN ---
Progress Note - Text Interval History: Patient is a 31-year-old male who is seen today and states that he refused his medication again this morning. He states that the medication "dissolves my mind". Patient states that he doesn't want to be a person who is being experimented on "I don't believe medication will provide peace". Patient states that his actual home is in [place] and he is going to [place] as soon as he leaves the hospital. Patient states an adopted brother has his money in [facility] and he has a credit card to buy a ticket to [place]. He states that he came here to apply for [place] passport so that he would have to passports when he went to [place] so that he could return to either [place] where the [place] if there were problems on his return. Patient states he is to a woman in [place] that he has been scraping and when I asked him if they were truly he stated that they were " bonded through God, Prem and Buddha and she knows". Patient again refused to sign a release to speak with his mother stating "she has her own problems interpersonal issue I can't discuss with you and don't want to exploit her". patient stated that he has been [facility] and [place] with trespassing at a high school to obtain food but he would not further discuss this. Mental Status: Appearance/Attitude: Patient is again wearing a pillowcase around his head as a headgear, dressed in a hospital gown, has long hair and a pittman. He makes eye contact and is cooperative. Behavior: Patient does not display any psychomotor agitation or retardation. Speech/Language: Patient's speech is spontaneous and of normal volume and rhythm and he is coherent. Thought Process: Patient is not tangential or circumstantial and there is no evidence of loose associations or flight of ideas and he is goal directed. Thought Content: Patient denies any auditory or visual hallucinations, no thought insertion or thought broadcasting was elicited and the patient continues to state that he is an Israelite and a member of the 12 tribes. Patient also discussed that he is to a woman in [place] that he has been scraping and states that they are "bonded through God, Prem, Buddha and she knows this". Patient states that his actual home is [place] and states that he is going to leave there as soon as he is discharged from the hospital. Patient feels the medication "dissolves my mind" and feels he is being experimented on and does not believe that "medication will provide peace". Patient states that he is sleeping and eating well. Suicidal/Homicidal Ideation: Patient denies any current suicidal or homicidal ideation. Sensorium/Cognition: Patient is alert and oriented to person, place, and time and his memory is grossly intact. Mood/Affect: Patient's mood is slightly guarded and his affect is appropriate to his mood. Insight/Judgement: Patient's insight and judgment are poor, he continues to refuse medication, and refuses to sign a release of information to obtain further historical information from his mother Assessment: Patient continues to refuse medication, there've been no further episodes of agitated behavior or yelling and screaming on the unit. Patient has not received any IM medications since April 17. Patient continues to state that he is being experimented on, feels the medication is dissolving his mind and is not going to provide peace. He states that his discharge plans are to go to [place] which is his actual home and he was here to obtain a passport from the [facility] so that he would have 2. Patient continues to refuse to sign a release to speak with his mother. Patient continues to state that he is to a woman in [place], stating that they are bonded. Plan: Patient continues to refuse oral medication, patient has a court hearing scheduled for tomorrow and he continues to state that he does not require medication. Patient continues to have as needed medication ordered for episodes of agitation.
[2017-04-23] MEDS: BENZTROPINE MESYLATE 1 MG TAB PO SCH ×2 (08:18→20:49)
[2017-04-23] MEDS: HALOPERIDOL 5 MG TAB PO SCH ×2 (08:18→20:49)
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
[2017-04-23] MEDS: HALOPERIDOL LACTATE 5 MG/ML 1 ML VIAL IM PRN ×2 (19:18→19:23)
[2017-04-23] MEDS: LORazepam 2 MG/ML INJ IM PRN ×2 (19:19→19:23)
[2017-04-24] MEDS: BENZTROPINE MESYLATE 1 MG TAB PO SCH ×2 (08:56→20:21)
[2017-04-24] MEDS: HALOPERIDOL 5 MG TAB PO SCH ×2 (08:56→20:21)
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
[2017-04-25] MEDS: BENZTROPINE MESYLATE 1 MG TAB PO SCH ×2 (08:09→20:29)
[2017-04-25] MEDS: HALOPERIDOL 5 MG TAB PO SCH ×2 (08:09→20:29)
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
[2017-04-26] MEDS: HALOPERIDOL 5 MG TAB PO SCH ×2 (08:41→19:40)
[2017-04-26] MEDS: BENZTROPINE MESYLATE 1 MG TAB PO SCH ×2 (08:41→19:40)
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
[2017-04-27] MEDS: BENZTROPINE MESYLATE 1 MG TAB PO SCH ×2 (08:01→19:13)
[2017-04-27] MEDS: HALOPERIDOL 5 MG TAB PO SCH ×2 (08:01→19:13)
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
[2017-04-28] MEDS: BENZTROPINE MESYLATE 1 MG TAB PO SCH ×2 (08:13→22:17)
[2017-04-28] MEDS: HALOPERIDOL 5 MG TAB PO SCH ×2 (08:14→22:17)
--- NOTE | 2017-04-28 13:44 | P.PN ---
Progress Note - Text Interval History: Patient is a 31-year-old male who is seen again today and requested that I speak with Dr. Jones and I reported to him that I had spoken with Dr. Jones and he was not willing to accept the transfer of care. Patient states that he wants a second opinion because he does not agree with my diagnosis and stated that "I've been misquoted in my chart because I had corrected in the chart what was not credible and you can't use this against me as hearsay". He then went on to tell me that "you don't have any evidence personally". When I reported to the patient that in the chart it is noted that he has threatened the bilingual social worker in the emergency room he stated that he warned her that she would be persecuted did not threaten her. When I told him that he had taken a swing at manager security and safety and spit on a nurse he denied both of these events. When I reported to him that he had called the nurse a pedophile he said that he had called a nurse a pedophile and that another nurse had copied that. Patient requested that I change his diagnosis, when I declined to do so and told him that we had discussed in the past my reasons for making the diagnosis he got up and walked out the door. Mental Status: Appearance/Attitude: Patient was wearing a hospital gown over street clothes and wearing a pillowcase on his head, made intermittent eye contact today and was superficially cooperative. Behavior: Patient did not exhibit any psychomotor agitation but did become increasingly irritated with me during the interview and abruptly got up and left , there is no evidence of psychomotor retardation. Speech/Language: Patient's speech is spontaneous, of normal rhythm today his voice was loud and he is coherent. Thought Process: Patient today discussed his request that I change his diagnosis , went on about being misquoted in the chart, my using hearsay to make a diagnosis nurse no evidence of flight of ideas or loose associations Thought Content: Patient today denied making any threats toward bilingual social worker and emergency room, denied taking a swing at security strategist, denied spitting on a nurse but did agree that he had called the nurse a pedophile and then stated that another nurse at copied that. He states that he is misquoted in the chart and that I am not able to use any hearsay in court and that nothing in the chart is credible. Suicidal/Homicidal Ideation: Not assessed today as the patient abruptly left the room. Sensorium/Cognition: Patient is alert and oriented to person, place and time memory is grossly intact. Mood/Affect: Patient's mood was irritable, guarded his affect is appropriate to his mood. Insight/Judgement: Patient continues to report that he does not require treatment, states he has no mental illness Assessment: Patient continues to request that I change his diagnosis from schizophrenia today telling me that he's been misquoted in the chart, that I cannot use within the chart against him, that I don't have any evidence personally. Patient continues to express delusional ideation regarding staff being racist, pedophiles, bahai and continues to wear a pillowcase is a headdress and he states he is an Israelite. The team treatment meeting it was reported that the patient had upset another patient who reported that she was called a bitch by the patient when addressed by staff this patient reports that he told her he wanted her to stop "bitching" at him as he was watching television and was able to follow staff's redirection. Social work reported that in group therapy today and that group was asked to give feedback, that he began stating that this was not the area for you, bringing race into the discussion, calling staff racist and was redirected by staff and he complied with the redirection. Plan: Patient continues to request that I change his diagnosis, continues to refuse oral medication when offered. Patient continues to require hospitalization due to his psychotic symptoms.
[2017-04-29] MEDS: BENZTROPINE MESYLATE 1 MG TAB PO SCH ×2 (08:09→20:51)
[2017-04-29] MEDS: HALOPERIDOL 5 MG TAB PO SCH ×2 (08:09→20:51)
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
[2017-04-30] MEDS: BENZTROPINE MESYLATE 1 MG TAB PO SCH ×2 (09:23→20:03)
[2017-04-30] MEDS: HALOPERIDOL 5 MG TAB PO SCH ×2 (09:23→20:03)
[2017-04-30] MEDS ORDERED: ACETAMINOPHEN TAB 325 MG TAB PO PRN (11:10)
[2017-04-30] MEDS ORDERED: MAG HYDROX/AL HYDROX/SIMETH 30 ML CUP PO PRN (11:10)
[2017-04-30] MEDS ORDERED: MAGNESIUM HYDROXIDE 2,400 MG/10 ML CUP PO PRN (11:11)
--- NOTE | 2017-04-30 13:16 | P.PN ---
Progress Note - Text Interval History: Patient is a 31-year-old male who approached me in the hallway and stated he wanted to speak with me but applying for Social Security disability. Patient came in the office and stated that he wants to know the process for applying for Social Security disability and wondered at [facility] would assist him with this. Patient stated that as he was going to be diagnosed with schizophrenia that he should get paid for it. When I asked the patient if he had been on assistance/welfare in [place] as he had last told me and asked if this was due to his being diagnosed with schizophrenia he told me that he had never stated that to me that was not any of my business as it occurred in [place]. I also asked the patient about his speaking quite loudly last evening on the telephone and he told me that he was speaking to someone who is hard of hearing but would not tell me who that was stating it was none of my business. Patient then began to discuss his concerns that there are lies and slander in the chart, that what is stated is not what he said, stating that I am" not respecting what is in my mind and this door needs to be shut in your face". This in response to my telling him that staff is not lying and they are not slandering him in the chart. Patient abruptly got up opened the door and left the interview room. Mental Status: Patient was alert, oriented to person, place and time and he was dressed in a hospital gown with a pillowcase on his head, he was superficially cooperative becoming upset and leaving the interview room abruptly. He accused staff of lying and writing slander about him in the chart, stated it was my responsibility to correct this, he was asking about how to apply for SSD if he is diagnosed with schizophrenia as he needs to be paid for this. Patient denied he had ever told me he was on welfare/assistance in [place] and said it is not any of my business as that is in [place]. Patient was guarded, staring intently during the interview, got up and left for the above reason.] Assessment: Patient continues to refuse oral medication, he is participating intermittantly in groups and activities. In team meeting, staff who was on the unit last evening stated she had observed the patient on the phone yelling, but it did not appear that there was anyone on the phone, he was also then seen masturbating in the phone jennings. Patient was also asked to leave a group today due to inappropriate behavior and inability to follow redirection. Patient continues to voice that the staff are lying, that the information in the chart is wrong and wants it changed. Patient left the interview room today due to becoming upset that I would not agree that staff are lying and slandering him. He continues to discuss sodomy, pedophilia, and homosexuality and that perversions are going on and people need to be punished for this, as stated to staff yesterday when doing his laundry and has stated to me in the past. Plan: Patient continues to refuse oral medication. Patient requires hospitalization for treatment of his psychotic symptoms.
[2017-05-01] MEDS: BENZTROPINE MESYLATE 1 MG TAB PO SCH ×2 (09:16→19:40)
[2017-05-01] MEDS: HALOPERIDOL 5 MG TAB PO SCH ×2 (09:17→19:40)
--- NOTE | 2017-05-01 11:35 | P.PN ---
Progress Note - Text Interval history: The patient is found in the activity room he follows me to an interview room. Recent progress notes are reviewed. Prior to meeting with the patient he could be heard yelling quite loudly on the unit which required some redirection by staff. He states that he is not complying with medication and is awaiting a court hearing. He feels that staff are lying about him and slandering him. When asked why he states it's probably because they are part of a bankrupt system and he is not bankrupt. He states that he is an [place]ite and lives on a trust fund. He denies having any symptoms that he perceives. He accuses prior psychiatrists of not forming her own opinion but simply taking the word of staff who are lying. Mental status exam: The patient is alert he is dressed in a T-shirt and shorts he has a white cloth on his head his face is exposed his hair is long it appears wet he has a long pittman. Eye contact is staring in nature. His speech is very deliberate he is verbose he is directable in conversation. He reports no suicidal or homicidal ideation. He clearly expresses concerns that staff are persecuting him and he feels discriminated against. Insight and judgment are impaired. He demonstrates no verbal or physical aggressiveness. He is demonstrating no abnormal involuntary movements. Plan: Acute psychosis: The patient is being offered oral Haldol he is refusing. Vital signs reviewed. We will continue to monitor him for safety and encourage appropriate participation in the milieu. We will provide appropriate reality orientation when possible.
[2017-05-02] MEDS: BENZTROPINE MESYLATE 1 MG TAB PO SCH ×2 (08:45→20:31)
[2017-05-02] MEDS: HALOPERIDOL 5 MG TAB PO SCH ×2 (08:45→20:31)
--- NOTE | 2017-05-02 15:38 | P.PN ---
Progress Note - Text Interval history: The patient is found in the activity room for group he follows me to an interview room. He reports his mood is frustrated and disappointed. He feels he is being manipulated. He states he is not participating in group because he is more "progressive". He states that he has a court hearing on the and he is confident he will be released. He continues to refuse oral medication. Mental status exam: The patient is a male appearing his stated age. He has long hair and overgrown pittman he continues to wear a pillowcase on his head with his face exposed. He is wearing the same clothing is yesterday. He has some spontaneous speech he does provide brief answers to questions asked. He continues to describe having paranoid and persecutory thoughts. Insight and judgment are impaired. He demonstrates no verbal or physical aggressiveness during our session. He demonstrates no abnormal involuntary movements. He reports no suicidal or homicidal ideation. Plan: The patient continues to experience symptoms of psychosis that are causing psychosocial dysfunction. He continues to refuse oral medication. We will continue to offer medications as prescribed. Vital signs reviewed. We will continue to monitor him for safety.
[2017-05-03] MEDS: BENZTROPINE MESYLATE 1 MG TAB PO SCH ×2 (08:44→21:34)
[2017-05-03] MEDS: HALOPERIDOL 5 MG TAB PO SCH ×2 (08:44→21:34)
--- NOTE | 2017-05-03 14:33 | P.PN ---
Progress Note - Text patient was called to the desk to speak with me and he refused to do so saying "I don't want to talk to you"
[2017-05-04] MEDS: BENZTROPINE MESYLATE 1 MG TAB PO SCH ×2 (10:06→21:17)
[2017-05-04] MEDS: HALOPERIDOL 5 MG TAB PO SCH ×2 (10:06→21:17)
--- NOTE | 2017-05-04 13:52 | P.PN ---
Progress Note - Text Patient was approached to meet, he was in his room, did not open the door and stated he had nothing to discuss with me and would maybe meet with me tomorrow. Patient has been in his room for the bulk of the day yesterday and today, not attending groups or activities, he is eating in the dining room but is not interacting with other patients. patient continues to refuse his medication.
[2017-05-05] MEDS: BENZTROPINE MESYLATE 1 MG TAB PO SCH ×2 (08:13→20:04)
[2017-05-05] MEDS: HALOPERIDOL 5 MG TAB PO SCH ×2 (08:13→20:04)
--- NOTE | 2017-05-05 13:25 | P.PN ---
Progress Note - Text Interval History: Patient is a 31-year-old male, I approached him in his room today and spoke with him there. Patient stated that he was staying in his room because he was feeling depressed in the hospital. He states he was also staying in the room because these people are mentally ill when asked to his referring to he said patients and staff. Patient asked me if he would be in the hospital for 2 months after the trial if he was ordered to stay here, he then restated that he wondered if he could start Seroquel. I asked how he came up with the name of that medication he states that his mother recommended. He could not tell me why she had recommended that medication. Patient states that he doesn't want me to ruin his life and states that he is concerned the medication will ruin his mind. Mental Status: Appearance/Attitude: Patient was sitting on the floor in a crosslegged position on a towel in the sun, wearing a pillowcase on his head, he made good eye contact and was cooperative. Behavior: Patient did not display any psychomotor agitation or retardation. Speech/Language: Patient was spontaneous, his speech was of normal volume and rhythm and he was coherent. Thought Process: Patient was goal-directed in his responses to my questions, no loose associations or flight of ideas were elicited. Thought Content: patient denies any auditory or visual hallucinations, he continued to express that he was being persecuted here, felt that the medication may ruin his mind and also that the patients and staff were mentally ill. Patient states that he is feeling depressed and this is why he did not come out of his room to eat this morning and has been staying in his room because "these people are mentally ill" Suicidal/Homicidal Ideation: patient denies any current suicidal or homicidal ideation Sensorium/Cognition: patient is alert and oriented to person, place, and time and his memory is grossly intact. Mood/Affect: Patient states that he is feeling depressed because he is in the hospital, his mood is restricted and his affect is blunted. Insight/Judgement: Patient's insight and judgment are impaired. Assessment: Patient has been staying in his room for the last several days and when questioned why that was so he reported it was because these people are mentally ill referring to both staff and patients. Patient been refusing to speak with me approached him in his room and he was agreeable to my speaking with him there. Patient stated that his mother suggested he try Seroquel but he refused to started at this time stating that he wants to wait until after the trial. Patient continued to express concerns that I would ruin his life, that the medication would ruin his mind. I discussed with him medication and its benefits to improving his thinking decreasing the thoughts that he has had about sodomy, pedophilia, cannibalism. Plan: Patient continues to refuse Haldol and would not sign a consent to take Seroquel stating he wishes to wait until after the trial. Patient was encouraged to leave his room, he stated he has plans to travel after his discharge. Patient's trial is tomorrow.]
[2017-05-06] MEDS: HALOPERIDOL 5 MG TAB PO SCH ×2 (10:16→19:34)
[2017-05-06] MEDS: BENZTROPINE MESYLATE 1 MG TAB PO SCH ×2 (10:16→19:34)
[2017-05-07] MEDS: BENZTROPINE MESYLATE 1 MG TAB PO SCH ×2 (08:17→21:05)
[2017-05-07] MEDS: HALOPERIDOL 5 MG TAB PO SCH ×2 (08:18→21:05)
--- NOTE | 2017-05-07 11:31 | P.PN ---
Progress Note - Text Interval History: Patient is a 31-year-old male who was seen today, he was not seen yesterday due to his being an Court for his jury trial all day. Patient states that he wants to discuss medication with me we discussed his mother's recommendation of Seroquel as well as my recommendation of Abilify. Patient also voiced that he felt he had said too much on the inpatient unit thought that staff were his friends and states that he is sorry he discussed his beliefs with them. Patient reported to me that he is going to sleep away his time on the inpatient unit and try not to interact with anyone. Patient felt that the staff was against him and the things that they had written in the chart were not true. Patient is aware that the jury trial will resume on Wednesday in the afternoon as we still have no decision. Mental Status: Appearance/Attitude: Patient was wearing a pillowcase on his head , wearing a gown over his street clothes, made intermittent eye contact and was cooperative. Behavior: Patient did not display any psychomotor agitation or retardation. Speech/Language: Patient's speech was spontaneous, normal volume and rhythm and he was coherent. Thought Process: Patient was goal-directed today, no loose associations were elicited. Thought Content: Patient denied any auditory or visual hallucinations, he discussed feeling that staff were against him, was sorry that he had shared so much of his beliefs with them, stating he thought they were his friends and feels that they did not understand his police and made him look psychotic and what they had documented in the chart. Patient stated to me is not depressed but is going to sleep away the rest of his hospital stay. He reported that he is eating and his appetite is good. Suicidal/Homicidal Ideation: Patient denied any current suicidal or homicidal ideation. Sensorium/Cognition: Patient was alert and oriented to person, place, and time and his memory is grossly intact. Mood/Affect: Patient's mood is restricted in his affect is blunted. Insight/Judgement: Patient's insight and judgment remain poor. Assessment: Patient reports that he will stay in his room and sleep for the rest of his hospital stay as he feels that staff has written things that are not true in the chart, did not understand his beliefs that he shared with them. Feels that staff is against him and denies ever raising his voice her yelling at anyone on the unit. Patient denied feeling depressed and states he has no current suicidal or homicidal ideation. Patient I had a long discussion regarding the use and side effects of both Seroquel and Abilify, he states that his mother recommended he try Seroquel and I discussed my recommendation of Abilify with the patient. He was agreeable to a trial of Abilify should the jury find that he needs to stay in the hospital but will not sign a consent until the decision on Wednesday. Patient stated that he would return to [place] after his discharge and return to his apartment where he lives with his adopted brother. Plan: Patient continues to refuse oral medication, we had a long discussion regarding the use and side effects of Abilify which she states he was agreeable to try should the jury decide for him to stay in the hospital on Wednesday. Patient also verbalized that he is not feeling depressed but plans to sleep away his time in the hospital. Patient feels that staff is against him and states he will have less interaction with staff. Patient's trial was adjourned until Wednesday afternoon, await the jury decision at that time.
[2017-05-08] MEDS: BENZTROPINE MESYLATE 1 MG TAB PO SCH ×2 (08:08→20:51)
[2017-05-08] MEDS: HALOPERIDOL 5 MG TAB PO SCH ×2 (08:08→20:51)
--- NOTE | 2017-05-09 01:05 | P.PN ---
Progress Note - Text [place] [facility] [place] He is [place] y preoccupied with being born of a [place] of [place]. Patient denies any new complaints. He states hes eating well. Denies any problems with sleep. Plan: -continue current regimen -patient disposition pending course and progression of patient's response to treatment
[2017-05-09] MEDS: BENZTROPINE MESYLATE 1 MG TAB PO SCH ×2 (09:34→21:47)
[2017-05-09] MEDS: HALOPERIDOL 5 MG TAB PO SCH ×2 (09:34→21:47)
--- NOTE | 2017-05-10 00:34 | P.PN ---
Progress Note - Text Vital Signs Temp 97.7 F 05/04/17 06:50 Pulse 65 05/04/17 06:50 Resp 16 05/04/17 06:50 BP 108/55 05/04/17 06:50 Pulse Ox 98 05/01/17 18:00 Intake & Output 05/09/17 05/09/17 05/10/17 06:59 18:59 06:59 Weight 68.4 kg Patient refuses interview this morning, this afternoon he consents if it can be done in the lounge while he watches football. Patient denies any problems with sleep or appetite. He continues to wear a towel around his head like a turban and remains fixated on grandiose stories regarding [place]ym[place] descendants and secret tribes. No change from previous interview. Plan: -continue hospitalization -defer medication changes to primary team
[2017-05-10] MEDS: HALOPERIDOL 5 MG TAB PO SCH (09:04)
[2017-05-10] MEDS: BENZTROPINE MESYLATE 1 MG TAB PO SCH (09:04)
[2017-05-10] MEDS ORDERED: ZIPRASIDONE 20 MG VIAL IM PRN ×2 (16:46→19:02)
[2017-05-10] MEDS ORDERED: LORazepam 1 MG TAB PO PRN (16:47)
[2017-05-10] MEDS ORDERED: LORazepam 2 MG/ML INJ IM PRN (16:48)
--- NOTE | 2017-05-10 17:02 | P.PN ---
Progress Note - Text Interval History: Patient is a 31-year-old male who was seen today, he went to court today for the final decision on his hearing and was given a court order for a maximum 90 days, combined treatment. Patient states he is not having any suicidal or homicidal ideation and denies hearing voices patient states he no longer feels that there are cannibals or pedophiles in the area. Patient and I discussed the results of the trial meaning that he now will be required to take medication and cannot refuse it should states he understood this. Mental Status: Appearance/Attitude: Patient was dressed in shorts and a T-shirt with a hospital gown over top of that, wearing a pillowcase on his head. Patient had good eye contact and was cooperative. Behavior: Patient did not display any psychomotor agitation or retardation. Speech/Language: Patient's speech was spontaneous, normal volume and rhythm and he was coherent. Thought Process: Patient was goal-directed Thought Content: Patient denied any auditory or visual hallucinations, patient stated that he no longer believes there are cannibals or pedophiles in the area but continues to wear a pillowcase on his head because he is in [place]. Patient is eating and sleeping well. Suicidal/Homicidal Ideation: Patient denied any current suicidal or homicidal ideation. Sensorium/Cognition: Patient is alert and oriented to person, place, and time and his memory is grossly intact. Mood/Affect: Patient's mood is restricted and his affect is blunted. Insight/Judgement: Patient's insight and judgment are impaired. Assessment: Patient I along discussion regarding his court order for treatment fact that he can no longer refuse medication and if he refuses oral medication will be given an injection. Patient and I had discussed and reviewed again the use of Abilify and its side effects. Patient again stated that he was going to spend his time in his room to avoid interacting with other patients. Plan: Patient will be started on Abilify 10 mg in the morning and if he refuses oral meds will be given Geodon 10 mg IM. Patient and I discussed increasing the Abilify after several days if he tolerates it to 15 mg, patient was agreeable to the above plan.
[2017-05-11] MEDS ORDERED: ZIPRASIDONE 20 MG VIAL IM SCH (09:00)
[2017-05-11] MEDS ORDERED: ZIPRASIDONE 20 MG VIAL IM PRN (09:00)
[2017-05-11] MEDS: ARIPiprazole 10 MG TAB PO SCH (09:25)
[2017-05-11 10:31] VITALS: BMI 23.6
--- NOTE | 2017-05-11 15:34 | P.PN ---
Progress Note - Text Interval History: Patient is a 31-year-old male who was seen today, patient reports that he took the Abilify this morning without difficulty. He states that he slept well and has not been requesting any melatonin. Patient states his appetite remains good. Patient stated he will attend groups if he feel that people are not negative and are not casting a negative spell and he states that he will attend if the leader this not in an negative place of mind. Patient was seen eating in the hallway this morning and he stated that he ate there with another patient. Patient states that he will continue to stay in his room and spent the bulk of his hospital stay there. Mental Status: Appearance/Attitude: Patient is dressed and her shorts and a T- shirt with a gown over top and is wearing a pillowcase on his head, patient makes good eye contact and is cooperative. Behavior: Patient does not display any psychomotor agitation or retardation. Speech/Language: Patient's speech is spontaneous and of normal volume and rhythm and he is coherent Thought Process: Patient is goal-directed, no evidence of derailment Thought Content: Patient denies auditory or visual hallucinations, he continues to wear a pillowcase on his head because he is in [facility], he stated that he was not attending groups because some of the patients in their had a negative spell or the leader is in a negative place of mind. Patient reports he is sleeping and eating well. Suicidal/Homicidal Ideation: Patient denied any current suicidal or homicidal ideation. Sensorium/Cognition: Patient is alert and oriented to person, place, time and his memory is grossly intact. Mood/Affect: Patient's mood remains restricted, guarded and his affect is blunted. Insight/Judgement: Patient's insight and judgment remains poor, patient does not feel he requires medication but is complying with the order Assessment: Patient reports no side effects from his medication this morning and states that he took the medication without difficulty. Patient states he is sleeping and eating well and states he is not attending some groups if he feels there is a negative spell from other patients or if the leader of the group is in a negative place of mind. Patient states that he will spend the bulk of his time in his room. Plan: Patient continues on Abilify 10 mg in the morning to target his psychotic symptoms and if he refuses patient will received Geodon 10 mg IM. I discussed with the patient that in 2 days we would increase the Abilify to 15 mg. Patient is not reporting any side effects from the medication at this time.
[2017-05-12] MEDS: ARIPiprazole 10 MG TAB PO SCH (08:56)
--- NOTE | 2017-05-12 13:53 | P.PN ---
Progress Note - Text Interval History: Patient is a 31-year-old male who was seen in his room today and his request. Patient states that he is feeling well reported no side effects from the medication. Patient states he is sleeping and eating well. Patient stated that he does not want to consider long-acting injectable Abilify. Patient reports that he continues to spend most of the time in his room to avoid interacting with staff or other patients. Patient did not verbalize any further complaints. Mental Status: Appearance/Attitude: Patient is dressed in a hospital gown, wearing a pillowcase on his head, made good eye contact and was cooperative. Behavior: Patient does not display any psychomotor agitation or retardation. Speech/Language: Patient was spontaneous but only briefly answered questions today, speech is of normal volume and rhythm and he is coherent. Thought Process: Patient was goal-directed with brief answers today no loose associations or flight of ideas Thought Content: Patient denied any auditory or visual hallucinations, patient did not verbalize any latter day preoccupation, or other concerns regarding sodomy or pedophilia. Patient reported no side effects from the medication was sleeping and eating well. Suicidal/Homicidal Ideation: Patient denies any current suicidal or homicidal ideation. Sensorium/Cognition: Patient was alert and oriented to person, place, and time and his memory is grossly intact. Mood/Affect: Patient's mood remains slightly guarded and his affect is slightly blunted. Insight/Judgement: Patient's insight and judgment are impaired. Assessment: Patient has been taking his medication Abilify 10 mg and reports no side effects from it. Patient and I discussed increasing the Abilify dose to 15 mg and he was agreeable to do this, when I discussed long-acting injectable medication he declined. Patient did not spontaneously verbalize any delusional ideation today but he continues to wear a pillowcase on his head as a headrest. Patient has been spending much of the time in his room avoiding interaction with staff or other patients. There have been no episodes of agitated behavior and the patient has been compliant with oral medication. Plan: Patient will continue on Abilify and the dose will be increased to 15 mg every morning. Patient continues to require hospitalization to target his psychotic symptoms. Patient again verbalized that he will return to [place] upon discharge.
[2017-05-13] MEDS: ARIPiprazole 15 MG TAB PO SCH (09:30)
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
[2017-05-14] MEDS: ARIPiprazole 15 MG TAB PO SCH (08:44)
--- NOTE | 2017-05-14 13:38 | P.PN ---
Progress Note - Text Interval History: Patient is a 31-year-old male who was seen today, he reports that he did attend group today, states that he attends some groups. Patient states that he is sleeping and eating well and reports no side effects from the medication. Patient did not have much to say today requesting again who his treating psychiatrist would be. He reported no other difficulties at this time. Mental Status: Appearance/Attitude: Patient is dressed in shorts and a T-shirt and wears a pillowcase on his head, makes good eye contact and is cooperative. Behavior: Patient does not display any psychomotor agitation or retardation. Speech/Language: Patient's speech is spontaneous, normal volume and rhythm and he is coherent. Thought Process: Patient was goal-directed, no evidence of circumstantial or tangential thought and no loose associations. Thought Content: Patient denies any auditory or visual hallucinations, did not discuss any holiness ideation at this time, patient remains guarded and states that he does not attend some groups because he does not want other patients problems to become his. States he is not speaking with staff as much because they misinterpreted what he said. Patient states he is sleeping and eating well. Suicidal/Homicidal Ideation: Patient denies any current suicidal or homicidal ideation. Sensorium/Cognition: Patient is alert and oriented to person, place, and time and his memory is grossly intact. Mood/Affect: Patient's mood is restricted and his affect is blunted. Insight/Judgement: Patient's insight and judgment are poor. Assessment: Patient has been taking his oral medication Abilify 15 mg without any difficulty. He is not reporting any complaints of side effects. He attended group today and was appropriate in his interactions, was discussing his holiness thoughts. Patient has not had any episodes of agitated behavior on the unit and has not required any IM medication. Patient's holiness delusions persist but he has not made any comments regarding staff being pedophiles or comments regarding sodomy. Plan: Patient will continue on Abilify 15 mg, he continues to require hospitalization to treat his psychotic symptoms. Patient states that he will return to [place] upon discharge, he is aware that he is on a court order. Should patient behavior continued to improve and no further episodes of agitation and no refusal of oral medication discharge could certainly be considered late next week.
[2017-05-15] MEDS: ARIPiprazole 15 MG TAB PO SCH (08:36)
--- NOTE | 2017-05-15 12:44 | P.PN ---
Progress Note - Text Interval history: Patient is seen in cross coverage today for Dr. Carlin. He reports that he is undergoing treatment now. It is noted that he is on Abilify. He states that he still doesn't think that he needs treatment but is agreeable to continue with treatment. He was found in the lounge watching a hockey game. He does have treatment order. He does make reference to discharge plans upcoming and talks about returning to [place] where he does have support. Mental status exam: He is alert and cooperative with the interview. He seems to describe that his mood is doing well. He denies any significant anxiety. He does not verbalize any thoughts of harm to self or others. He does talk towards the end of the session about his mu-ism beliefs. He does not verbalize any hallucinations. He does not show any significant agitation. Plan: Patient will be maintained on current psychotropic medication regimen. We 'll continue to monitor for any medication side effects his ongoing response. We'll continue to cover for Dr. Carlin through the weekend.
[2017-05-15 21:40] LABS: Appearance,Urine Clear (Clear); Bilirubin,Urine Negative (Negative); Glucose,Urine (UA) Negative (Negative); Ketones,Urine Negative (Negative); Leukocyte Esterase,Urine Negative (Negative); Nitrite,Urine Negative (Negative); PH, Urine 8.5 (5.0-8.0); Protein,Urine Negative (Negative); Specific Gravity,Urine 1.014 (1.001-1.035); UA Billing (MACRO vs. MICRO) CHEM; Urobilinogen,Urine <2.0 mg/dL (<2.0)
[2017-05-16] MEDS: ARIPiprazole 15 MG TAB PO SCH (09:23)
--- NOTE | 2017-05-16 14:40 | P.PN ---
Progress Note - Text Interval history: Patient seen in cross coverage today for Dr. Carlin. He reports that he has his mattress on the floor so that he can be in the sun. He is found in his room lying on his mattress on the floor. He does state that he is taking his medication. He prefers to have our meeting in his room today. He does not seem to voice any adverse psychotropic medication side effects. Mental status exam: He is alert he is found in his room lying on his mattress on the floor. His answers are somewhat brief. He seems to describe his mood is doing okay. He denies any thoughts of harm to self or others. He denies any hallucinations. He does not show any agitation. He does not make any liliana delusional statements. Plan: We'll maintain current psychotropic medication regimen. Continue to monitor for any medication side effects and monitor his ongoing status.
[2017-05-17] MEDS: ARIPiprazole 15 MG TAB PO SCH (08:44)
[2017-05-17] MEDS ORDERED: ARIPiprazole 15 MG TAB PO STA (11:17)
--- NOTE | 2017-05-17 15:29 | PN ---
PROGRESS NOTE DATE OF SERVICE: 05/17/2017. CHIEF COMPLAINT: The patient was admitted due to odd behavior. He was making delusional statements. He was talking in an odd nonsensical manner with made up words. He had aggressive behavior. He made references to cannibals, Alvaro, terrorists and others. He was admitted on petition for involuntary hospitalization and has an ongoing treatment order. INTERVAL HISTORY: The patient has been doing fair. He has generally been cooperative. He has been taking medications without any significant resistance. He has had ups and downs in his thought process and how he interacts with others. He attends groups sporadically when he does attend. His presentation includes notation such as: "Bizarre, disheveled, circumstantial, episcopalian preoccupation, passive, aggressive, illogical, uncooperative." I reviewed the issues with the patient and staff. I wrote an order to increase his Abilify with an additional 15 mg dose today. The patient declined to take the additional dose though after a brief discussion, he was willing to take it without any hesitation. I talked to the patient about the behavior issue we had in group this morning and how that impacts our efforts towards seeing that he is ready for discharge. I strongly encouraged the patient to attend groups though to contain his behavior to what is reasonable in a general social setting. I discussed that would be an important factor in regards to our planning discharge from the psychiatric unit, that there would be an expectation that he would be able to function in the community without significant problems. Patient continues with some thought disorders, overall seems to be more contained in his behavior and functioning. I discussed discharge planning with the patient. He has not had change in his general health. He tolerates his psychotropic medication. MENTAL STATUS: The patient gave fairly good eye contact. Psychomotor activity was a little restless speech was clear. He answered questions with brief responses. His affect was somewhat rigid in his manner. His mood reserved. He did appear to be significantly distressed. ASSESSMENT: I will continue the current diagnosis and treatment plan. I will increase Abilify to 30 mg a day. I would plan on giving an injection of Abilify Maintena 10 mg on Wednesday with the aim of discharge on Wednesday if he remains stable. MMODL / IJN: [id number] /
[2017-05-18] MEDS: ARIPiprazole 15 MG TAB PO SCH (10:06)
--- NOTE | 2017-05-18 18:36 | PN ---
PROGRESS NOTE DATE OF SERVICE: 05/18/2017. CHIEF COMPLAINT: The patient was admitted due to odd behavior. He was making delusional statements and talking in a nonsense manner with made up words. He had aggressive behavior. He made references to cannibals, Alvaro, terrorists and others. He was admitted on petition and has an ongoing treatment order. INTERVAL HISTORY: Patient has been doing fair. He had a quiet evening last night. He slept fairly well. Today, he has been up and about. He has not had problems with the increase in his Abilify to 30 mg a day. He has generally been a little more appropriate overall in his interactions. He has made efforts to attend groups more consistently sometimes he is late. He acknowledges at least to some extent that some behavior he has had in groups may not be too socially acceptable. He seems to be a little more reality based in his thoughts. He has not had change in his general health. He tolerates his psychotropic medications. MENTAL STATUS: Patient gave good eye contact. He was a little restless in psychomotor activity. He answered questions with brief responses. His thoughts were clear, his affect was seemingly superficially bright. He had a quiet mood. He did not appear to be distressed. ASSESSMENT: I will continue the current diagnosis and treatment plan. I will continue the patient on Abilify. We will give him Abilify Maintena tomorrow and if tolerated, will aim for discharge by the end of the week. MMEDWINL / SAUD: [id number] /
[2017-05-19] MEDS: ARIPiprazole 15 MG TAB PO SCH (09:27)
[2017-05-19] MEDS ORDERED: ARIPiprazole 400 MG VIAL (NO CHARGE) IM ONE (15:00)
--- NOTE | 2017-05-19 16:43 | PN ---
PROGRESS NOTE DATE OF SERVICE: 05/19/2017 CHIEF COMPLAINT: The patient was admitted due to odd behavior. He was making delusional statements and talking in a nonsense manner with made-up words. He had aggressive behavior. He made references to cannibals, [place], terrorists and others. He was admitted on petition and has an ongoing treatment order. INTERVAL HISTORY: Patient has been doing fair. He had a quiet evening last night. He slept well. He says that he had been sleeping about 6 hours a night and more recently he has been sleeping about 8 hours a night. He has been up and about. He attends groups. He says he is making an effort to be socially appropriate in groups. He received his Abilify Maintena injection today without any complaints or problems. He seems to have a better outlook overall. He says that he is not inclined to remain in this community once his court order expires. We talked about options for him in the community, including possible residential situations beyond a nursing home. The patient voiced willingness to follow up with recommended outpatient treatment. He has not had change in his general health. He tolerates his psychotropic medications. MENTAL STATUS: Patient sat with just a little restlessness and gave good eye contact. He said a few things but did not say much. He smiled. He voiced no concerns or complaints. His affect was in a reasonable range. His mood was even. He at times seemed to have a superficially bright manner. He did not appear to be distressed. ASSESSMENT: I will continue the current diagnosis and treatment plan, continue psychotropic medications the same. The patient now has Abilify Maintena on board. I would aim to discharge the patient on Wednesday if he remains stable. MMODL / IJN: [id number] /
[2017-05-20 06:45] VITALS: BP 133/69; PULSE 73; RESP 14; TEMP 98.3
[2017-05-20] MEDS: ARIPiprazole 15 MG TAB PO SCH (09:58)
--- NOTE | 2017-05-20 12:26 | PN ---
PROGRESS NOTE DATE OF SERVICE: 05/20/2017 CHIEF COMPLAINT: The patient was admitted due to odd behavior. He was making delusional statements and talking in a nonsense manner with made up words. He had aggressive behavior. He made references to cannibals, Alvaro, terrorists and others. He was admitted on petition and has an on going treatment order. INTERVAL HISTORY: Patient has been doing fair. He received his Abilify Maintena injection yesterday. He said he felt groggy after the shot, though he acknowledges more that may have been stress about the whole idea of getting the shot compared to any effects of medication. He says one issue he has is about taking any drugs as his mother had apparent serious drug addiction. Patient has been attending groups only sporadically in the last 2 days. He comes out in the day area. He does not interact too much with others. It is noteworthy that he spends quite a bit of time on the telephone, though it is not clear who he talks to as he has not really identified anybody out in the community who he is connected with. He continues to have a focus on yarsani, though he not inclined towards getting involved with any organized religions in the community upon discharge. He has been generally appropriate in his interaction with staff. He has not shown significant regression towards psychotic symptoms. He has not had change in his general health. He tolerates his psychotropic medication. MENTAL STATUS: Patient gave fair eye contact. He was a little restless, his thoughts were clear. His affect blunted, his mood reserved. He did not appear to be distressed. ASSESSMENT: I will continue the current diagnosis and treatment plan. Will continue psychotropic medications the same. I reviewed issues relating to Abilify and Abilify Maintena including issues related to metabolics, potential risk for weight gain and other side effects. We discussed indication. I discussed my recommendation that he continue on oral medications until he is seen at [facility] by the prescriber there and then to discuss what would happen with his medications going forward. My recommendation would be to continue him on Abilify Maintena during the period that he is under court order treatment. Will continue to focus on stabilization and discharge planning. I would aim to discharge the patient tomorrow. MMODL / IJN: [id number] /
[2017-05-21] MEDS: ARIPiprazole 15 MG TAB PO SCH (09:05)
--- NOTE | 2017-05-21 12:18 | DS ---
DISCHARGE SUMMARY DATE OF SERVICE: 05/21/2017 DATE OF ADMISSION: 03/29/2017 DATE OF DISCHARGE: 05/21/2017. ADMISSION AND DISCHARGE DIAGNOSES: 1. Acute psychotic episode. 2. Schizophrenia. 3. Marijuana abuse and early withdrawal. HISTORY OF PRESENTING ILLNESS: The patient was homeless. He had been living in [place] and [place], presumably he entered the country without presenting to customs. He had [place] citizenship and carries a [place] passport; however, he was born in [place]. He was found by police to have odd behavior. He was making delusional statements. He was talking in an odd nonsensical manner with made up words. He made references to cannibals, Alvaro, terrorists and others. He had persistent talks about things not in touch with reality. He made references to "terrorists uprising", "rape and pillage". He was not able to provide a coherent history as he would be focused primarily on these kind of images. He was hyperreligious talking about [place], disciples and other references to ancient history. He made statements that he believed children were being raped and that the police told him they found body parts of children in the [place] around [place]. He was felt to be acutely delusional. There was apparent treatment order for the patient in [place] as reported by police though there were no details. He reportedly had been smoking marijuana on a daily basis up until a few weeks prior to coming from [place]. He reported no other substance use issues. He provided no information in regards to any other psychiatric or functional issues. He was admitted for further evaluation. He was admitted on petition for involuntary hospitalization. PHYSICAL EXAMINATION: As per Dr. Lujan. MENTAL STATUS EXAM: The patient gave good eye contact. He was restless. He answered with responses where he rambled and talked excessively. It was difficult to follow his train of thought. He was anxious and had an intense affect. His mood was dysphoric. He seemed somewhat distressed. He had persistent delusional thoughts. He was oriented and alert. DIAGNOSTIC STUDIES: CBC and comprehensive metabolic profile were unremarkable. TSH 2.4. Urinalysis negative. Urine drug screen positive for THC. COURSE OF HOSPITALIZATION: The patient was admitted for comprehensive medical, psychiatric and psychosocial evaluation. We made efforts to engage the patient in individual and group therapeutic activities. Early on in his hospitalization, the patient was resistant to treatment. Due to his petition status, we were not able to utilize any medications. After several days on the unit, the patient was showing behavior of gradual escalation with delusional thoughts and erratic behavior. He was making comments about racial issues and accusing others on the unit of various deeds. He had episodes where he became very distressed and agitated requiring IM medications. He received 4 or 5 injections of Haldol in the range of 5 to 10 mg along with Ativan 2 mg and Benadryl 100 mg. He responded fairly well to the injections. He would show fairly rapid calming from the injections then he would be quiet for a day or 2 then he might start showing signs of escalation into more behavior. He had a initial hearing for his petition. He demanded a jury trial which extended his hospitalization. In fact he will was hospitalized for a total of 54 days. We had extensive discussion with the patient in regards to treatment options as well as followup care options. The patient was strongly encouraged to consider getting on some psychotropic medications. He was given assurances that if he was to give a trial with medications and was willing to sign a deferral he could have a more expedited treatment and discharge. The patient seemed to understand the issues adequately; however, he would revert back to what appeared to be delusional thinking where he felt that people were against him and trying to do him harm. Ultimately he started accepting Abilify as an oral medication. In fact, he started the medication prior to his court hearing. His Abilify was titrated up to 15 mg twice a day. He showed gradual improvement. He would attend groups some of the time but not other times. In the middle days of his hospitalization, he might attend groups and then get into behavior within the group that was not acceptable. He might make very harsh and inappropriate comments within the group setting. Sometimes he had odd behavior such as turning is back on the group and then talking incessantly. Toward the end of his hospitalization, he continued to attend some groups but not others. His behavior became a little more contained and appropriate. He would come out in the day area. He did not interact much with others. Though it was noted that he spent quite a bit of time on the telephone. It was not clear who he was talking with as he had not identified any people out in the community who might be part of his support system. We had encouraged him to consider having anyone coming in who might be able to help in assessment and the treatment planning. On Wednesday prior to discharge which was May 19, he received Abilify Maintena 400 mg IM. He had previously been very resistant to medications, but once he got on the oral Abilify he did not make any resistance to continue on oral medications nor did he resist in any way accepting IM medication. He said he felt the medication made him a little sleepy after he took the injection though by the next day he said he felt back to normal and was not identifying any side effects relating to his medications and he did not show any signs or symptoms of EPS, rigidity or other abnormal movements. The patient only minimally engaged in the discharge planning. He accepted plans that were put in place. He accepted the idea that he would go to a senior care for his current living situation once he is discharged. He understood that followup was available through [facility] and he would be set up with appropriate appointments. The patient himself made the statement that his intention was to remain in the community while he was on a treatment order and then would consider leaving the community after that. He was quite vague on specifics in not only in regards to long-term issues but also in terms of what he envisions his function to be once he is discharged. We offered ideas in regards to options for social contact he might have when he gets into the community. CONDITION AT DISCHARGE: Patient was stable. His mood was even. His thoughts were less in a delusional frame. He was more reality based. He was interacting appropriately. He was not showing any signs of risk of harm to self or others. RECOMMENDATIONS AND FOLLOWUP: The patient is discharged to the community. He will be going to a senior care for his housing. Discharge medication: He will continue Abilify 30 mg a day for 2 weeks then reduce his dose to 15 mg a day for 2 weeks. I reviewed issues with the [facility] liaison indicating that he needed to see a psychiatrist within 2 weeks to further assess issues relating to ongoing use of oral Abilify as he transitions to Abilify Maintena. He was given a prescription for Abilify Maintena 400 mg IM 1 vial to be administered June 16, 2017 as his only other psychotropic medication. He has a followup appointments set with [facility]. He will have an intake within the next 2 days. I have recommended that he see a psychiatrist within 2 weeks from discharge. MMODL / IJN: [id number] /
[2017-05-27] MEDS ORDERED: ARIPiprazole 400 MG VIAL (NO CHARGE) IM ONE (11:09)
== END 2017-05-21 13:49 | disposition home or self-care (01) | DRG 885 ==
LOC: EC 16:49 → 3MHU 03-29 17:21
PROVIDERS: ADMIT Psychiatry & Neurology Psychiatry; ATTEND Psychiatry & Neurology Psychiatry
DX: F23 Brief psychotic disorder (principal); L03.312 Cellulitis of back [any part except buttock and flank]; F20.0 Paranoid schizophrenia; F39 Unspecified mood [affective] disorder; F12.288 Cannabis dependence with other cannabis-induced disorder; Z59.0 Homelessness; Z87.891 Personal history of nicotine dependence; Z91.83 Wandering in diseases classified elsewhere
CPT/HCPCS: 36415; 80053; 80306; 81003; 84443; 85025; 96372; 99285